=== PATIENT | male | born 1960 | race American Indian/Alaskan Native ===

== ENCOUNTER → 2018-02-02 | Outpatient (CLI) | payer OTHER ==
[~2018-02-02] MED LIST: ASPI81CH PO; GLIP10 PO; ZESTRIL40 MG PO
[2018-02-02 11:25] LABS: Hematocrit 34.9 % (37.0-53.0); Hemoglobin 11.8 g/dL (13.5-17.5)
[2018-02-02 11:53] LABS: Albumin, Blood 3.4 g/dL (3.4-5.0); Anion Gap 6 mmol/L (6-16); Blood Urea Nitrogen 42 mg/dL (8-24); Bun/Creatinine Ratio 11.6 (12.0-20.0); CO2, Blood 22 mmol/L (21-32); Calcium, Blood 8.7 mg/dL (8.5-10.1); Chloride, Blood 109 mmol/L (98-108); Creatinine, Blood 3.63 mg/dL (0.60-1.20); Glomerular Filtration Rate 18 (60-); Glucose, Blood 319 mg/dL (70-99); Magnesium, Blood 2.3 mg/dL (1.6-2.4); Phosphorus, Blood 3.7 mg/dL (2.5-4.9); Potassium, Blood 5.2 mmol/L (3.5-5.5); Sodium, Blood 137 mmol/L (136-145)
== END ==
LOC: LAB SHORT 10:34 → OLS 10:34
PROVIDERS: Internal Medicine
DX: E61.2 Magnesium deficiency (principal); N18.4 Chronic kidney disease, stage 4 (severe); D63.1 Anemia in chronic kidney disease
CPT/HCPCS: 36415; 80069; 83735; 83970; 85014; 85018

== ENCOUNTER 2018-06-17 10:02 | Day surgery (SDC) | payer OTHER ==
[~2018-06-17] VITALS: Ht 177.8 cm; Wt 104.5 kg
[~2018-06-17 10:02] MED LIST changes: +CLON.1 PO; +FURO40 PO; +LABE100 PO; +LIRA0.6P; +LISI20 PO; +NIFE60ER PO; +VELTASSA8.4 GM PO
== END 2018-06-17 11:52 | disposition home or self-care (01) ==
LOC: ORSCSDS 10:02
PROVIDERS: Internal Medicine Gastroenterology
PROC: 0DB58ZX Excision of Esophagus, Via Natural or Artificial Opening Endoscopic, Diagnostic (ICD-10-PCS; principal; 2018-06-17 11:15)
PROC: 0D758ZZ Dilation of Esophagus, Via Natural or Artificial Opening Endoscopic (ICD-10-PCS; principal; 2018-06-17 11:15)
PROC: 0DB68ZX Excision of Stomach, Via Natural or Artificial Opening Endoscopic, Diagnostic (ICD-10-PCS; principal; 2018-06-17 11:15)
DX: R13.10 Dysphagia, unspecified (principal); K22.10 Ulcer of esophagus without bleeding; K22.2 Esophageal obstruction; K44.9 Diaphragmatic hernia without obstruction or gangrene; K21.9 Gastro-esophageal reflux disease without esophagitis; R93.3 Abnormal findings on diagnostic imaging of other parts of digestive tract; E11.22 Type 2 diabetes mellitus with diabetic chronic kidney disease; I12.9 Hypertensive chronic kidney disease with stage 1 through stage 4 chronic kidney disease, or unspecified chronic kidney disease; N18.4 Chronic kidney disease, stage 4 (severe); N25.81 Secondary hyperparathyroidism of renal origin; Z86.718 Personal history of other venous thrombosis and embolism; E66.9 Obesity, unspecified; Z68.36 Body mass index [BMI] 36.0-36.9, adult; Z79.82 Long term (current) use of aspirin; Z79.4 Long term (current) use of insulin; Z79.899 Other long term (current) drug therapy
CPT/HCPCS: 82947; J7030; J7040

== ENCOUNTER 2020-08-23 10:45 | Inpatient (IN) | payer OTHER ==
[~2020-08-23] VITALS: Ht 177.8 cm; Wt 106.9 kg
[~2020-08-23 10:45] MED LIST changes: +Aspirin EC81 MG PO
[2020-08-23] MEDS ORDERED: Vitamin D2000 UNIT PO (11:08)
[2020-08-23] MEDS ORDERED: CINA30 PO (11:08)
[2020-08-23] MEDS ORDERED: AMLO5 PO (11:08)
[2020-08-23] MEDS ORDERED: LOSA25 PO (11:09)
[2020-08-23] MEDS ORDERED: Calcium Acetat667 MG PO (11:10)
[2020-08-23] MEDS ORDERED: METO50 PO (11:10)
[2020-08-23] MEDS ORDERED: OMEP20ER PO (11:10)
[2020-08-23 11:54] LABS: BASOPHILS ABSOLUTE AUTO 0.03 K/mm3 (0.00-0.23); BASOPHILS PERCENT AUTO 0 % (0-2); EOSINOPHILS ABSOLUTE AUTO 0.03 K/mm3 (0.00-0.68); EOSINOPHILS PERCENT AUTO 0 % (0-6); Hematocrit 31.9 % (37.0-53.0); Hemoglobin 10.9 g/dL (13.5-17.5); IMMATURE GRAN ABSOLUTE AUTO 0.07 K/mm3 (0.00-0.10); IMMATURE GRAN PERCENT AUTO 1 % (0-1); LYMPHOCYTES ABSOLUTE AUTO 1.14 K/mm3 (0.84-5.20); LYMPHOCYTES PERCENT AUTO 12 % (21-46); MONOCYTES ABSOLUTE AUTO 0.94 K/mm3 (0.16-1.47); MONOCYTES PERCENT AUTO 10 % (4-13); Mean Corpuscular HGB 30.9 pg (26.0-34.0); Mean Corpuscular HGB Conc 34.2 g/dL (31.5-36.5); Mean Corpuscular Volume 90 fL (80-100); Mean Platelet Volume 9.8 fL (9.1-12.4); NEUTROPHILS ABSOLUTE AUTO 7.67 K/mm3 (1.96-9.15); NEUTROPHILS PERCENT AUTO 78 % (41-73); Platelet Count 306 K/mm3 (150-400); RDW Coefficient Variation 12.6 % (11.7-14.2); RDW Standard Deviation 41.4 fL (35.1-46.3); Red Blood Cell Count 3.53 M/mm3 (4.30-5.90); White Blood Cell Count 9.88 K/mm3 (4.00-11.30)
[2020-08-23 12:07] LABS: Troponin I 0.134 ng/mL (0.000-0.040)
[2020-08-23 12:11] LABS: Albumin, Blood 2.8 g/dL (3.4-5.0); Albumin/Globulin Ratio 0.5 (0.8-1.8); Bilirubin, Total 0.5 mg/dL (0.1-1.0); Bun/Creatinine Ratio 4.5 (12.0-20.0); Calcium, Blood 9.3 mg/dL (8.5-10.1); Creatinine, Blood 7.05 mg/dL (0.60-1.20); Globulin, Blood 5.1 g/dL (2.2-4.0); Potassium, Blood 3.6 mmol/L (3.5-5.5); Total Protein, Blood 7.9 g/dL (6.4-8.2)
[2020-08-23] MEDS ORDERED: TOPROL XL50 M1 PO (13:27)
[2020-08-23] MEDS ORDERED: CALCIUM ACETAT667 M2 PO (13:28)
--- NOTE | 2020-08-23 18:29 | NUR ---
ARRIVAL TO ICU 1645 - PT ARRIVED FROM ED TO ICU AT THIS TIME. HE HAS BEEN AWAKE, A/O X3, CALM AND COOPERATIVE SINCE ARRIVAL. DAUGHTER UPDATED AT BEDSIDE. PT ARRIVED WITH D10 INFUSING AT 75 ML/HR PER ORDER. SHORTLY AFTER ARRIVAL, PT WAS SITTING UPRIGHT IN BED EATING DINNER AND HAD SUDDEN ONSET OF VOMITING. ZOFRAN 4 MG IVP GIVEN AND VOMITING AND NAUSEA HAS SINCE RESOLVED. LUNG SOUNDS COARE IN UPPER LOBES AND DIMINISHED IN BASES. TOLERATING WEARING 3L NC. DIALYSIS FISTULA IN L ARM IS COVERED WITH OCCLUSIVE DRESSING. BP ELEVATED INITIALLY AT ARRIVAL, BUT IS NOW 150S SYSTOLIC. PT ABLE TO TAKE PO LASIX AND PO HYDRALAZINE. SEE BLOOD SUGAR TRENDS. WILL GIVE BEDSIDE, HANDOFF REPORT TO SHASTA HARDEN.
--- NOTE | 2020-08-23 23:30 | NUR ---
CARE ASSUMPTION ASSUMED CARE OF PT @ APPROX 2300 THIS SHIFT. PT A&O X4. VSS. MONITOR SHOWS NSR, HR 70's. SPO2 > 92% ON 4L NC. D10 GTT INFUSING PER ORDERS. Q1H CBG MONITORING SHOWING 90's-110. WILL CONTINUE TO MONITOR & PROVIDE CARE.
[2020-08-24 04:52] LABS: Bun/Creatinine Ratio 4.3 (12.0-20.0); Calcium, Blood 8.3 mg/dL (8.5-10.1); Creatinine, Blood 9.25 mg/dL (0.60-1.20); Potassium, Blood 4.6 mmol/L (3.5-5.5)
--- NOTE | 2020-08-24 06:26 | NUR ---
SHIFT SUMMARY PT A&O X4. BP ELEVATED, OTHERWISE VSS. PO HYDRALAZINE GIVEN PER EMAR. MONITOR SHOWS NSR, HR 70's-80's. SPO2 > 92% ON 4L NC. CBG VALUES CONSISTENTLY > 100. MD GALEANA NOTIFIED W/ NEW ORDERS TO DC D10 GTT AND CHANGE Q1H CBG MONITORING TO Q3H X2, THEN CHANGE TO AC & HS IF > 100. WILL CONTINUE TO MONITOR UNTIL REPORT OFF TO DAY SHIFT RN.
--- NOTE | 2020-08-24 13:13 | NUR ---
PT HAS JUST FINISHED WITH DIALYSIS AND IS RETURNING TO ROOM
--- NOTE | 2020-08-24 14:15 | NUR ---
PT A/O X3, ANSWERING QUESTIONS APPROPRIATELY. GLUCOSE HAS REMAINED IN THE 100s T/O THIS SHIFT. VSS. PT HAS BEEN TO DIALYSIS THIS AM WHICH HE TOLERATED WELL. PT IS RESTING PAIN FREE IN BEDSIDE CHAIR WATCHING TV. ATE 100% OF HIS LUNCH TRAY UPON RETURNING FROM DIALYSIS. PT IS UPDATED ABOUT MEDICAL STATUS AND IS AWAITING A NEW ROOM ASSIGNMENT
--- NOTE | 2020-08-24 17:46 | NUR ---
RECEIVED PT TO RM 338 VIA W/C FROM PCU 13. PT IS A&O, INDEPENDENT IN AND TO [facility]. ADMITTED FOR AMS R/T CBG OF 20 WHILE AT [facility] YESTERDAY. PT PLACED ON D10 DRIP UNTIL IMPROVED. PT NOW BACK AT BASELINE. WENT TO DIALYSIS TODAY WHILE IN PCU. ON 2L NC AT BASELINE HOME O2. PT REQUESTED RECLINER TO SIT IN AT BS WHEN COMING TO . PT NOW WATCHING TV. NO C/O. CALL LT IN REACH.
--- NOTE | 2020-08-24 21:00 | NUR ---
PT. WITH BS OF 436. NOTIFIED ALEXIA KAPLAN DATA COMMUNICATIONS ANALYST. INSTRUCTED THIS NURSE TO WAIT UNTIL AM FOR LABS AND RECHECK OF BS AT THAT TIME DUE TO PT'S SEVERE HYPOGLYCEMIA DURING ADMISSION AND RECENTLY RECEIVING DEXTROSE. PT. ALERT, AWAKE, SITTING UP IN RECLINER CHAIR WATCHING TV. NO APPARENT DISTRESS NOTED. NO COMPLAINTS. DENIES NEEDS AT THIS TIME. CALL LIGHT WITHIN REACH. WILL CONT TO MONITOR.
--- NOTE | 2020-08-25 04:47 | NUR ---
SHIFT SUMMARY- PT. A&O, PLEASANT, AND COOPERATIVE WITH CARE. INDEP IN ROOM AND ABLE TO MAKE NEEDS KNOWN. NO COMPLAINTS OF PAIN OR DISCOMFORT T/O THE NIGHT. CBG LAST NIGHT AT 436, HOSPITALIST MADE AWARE(SEE NURSE NOTE). INSTRUCTED TO CONT TO MONITOR PT. AND RECHECK BS WITH AM LABS/AC. PT. ASLEEP THE REST OF THE SHIFT, NO APPARENT DISTRESS NOTED. CALL LIGHT WITHIN REACH AND SIDE RAILS UPX2. WILL CONT TO MONITOR.
[2020-08-25 06:11] LABS: BASOPHILS ABSOLUTE AUTO 0.07 K/mm3 (0.00-0.23); BASOPHILS PERCENT AUTO 1 % (0-2); EOSINOPHILS ABSOLUTE AUTO 0.47 K/mm3 (0.00-0.68); EOSINOPHILS PERCENT AUTO 7 % (0-6); Hematocrit 27.2 % (37.0-53.0); Hemoglobin 9.1 g/dL (13.5-17.5); IMMATURE GRAN ABSOLUTE AUTO 0.04 K/mm3 (0.00-0.10); IMMATURE GRAN PERCENT AUTO 1 % (0-1); LYMPHOCYTES ABSOLUTE AUTO 1.71 K/mm3 (0.84-5.20); LYMPHOCYTES PERCENT AUTO 24 % (21-46); MONOCYTES ABSOLUTE AUTO 0.99 K/mm3 (0.16-1.47); MONOCYTES PERCENT AUTO 14 % (4-13); Mean Corpuscular HGB 30.5 pg (26.0-34.0); Mean Corpuscular HGB Conc 33.5 g/dL (31.5-36.5); Mean Corpuscular Volume 91 fL (80-100); Mean Platelet Volume 9.8 fL (9.1-12.4); NEUTROPHILS ABSOLUTE AUTO 3.79 K/mm3 (1.96-9.15); NEUTROPHILS PERCENT AUTO 54 % (41-73); Platelet Count 295 K/mm3 (150-400); RDW Coefficient Variation 12.1 % (11.7-14.2); RDW Standard Deviation 40.7 fL (35.1-46.3); Red Blood Cell Count 2.98 M/mm3 (4.30-5.90); White Blood Cell Count 7.07 K/mm3 (4.00-11.30)
[2020-08-25 06:22] LABS: Albumin, Blood 2.4 g/dL (3.4-5.0); Anion Gap 8 mmol/L (6-16); Blood Urea Nitrogen 42 mg/dL (8-24); Bun/Creatinine Ratio 5.7 (12.0-20.0); CO2, Blood 32 mmol/L (21-32); Calcium, Blood 8.9 mg/dL (8.5-10.1); Chloride, Blood 92 mmol/L (98-108); Glomerular Filtration Rate 8 (60-); Glucose, Blood 193 mg/dL (70-99); Phosphorus, Blood 7.2 mg/dL (2.5-4.9); Potassium, Blood 4.6 mmol/L (3.5-5.5); Sodium, Blood 132 mmol/L (136-145)
[2020-08-25] MEDS ORDERED: HYDR10 PO (16:19)
== END 2020-08-25 16:56 | disposition home or self-care (01) | DRG 871 ==
LOC: ER 10:45 → ERHOLD 13:36 → PCU 13:36 → MEDS 08-24 17:33
PROVIDERS: Emergency Medicine; ADMIT Family Medicine
PROC: 5A1D70Z Performance of Urinary Filtration, Intermittent, Less than 6 Hours Per Day (ICD-10-PCS; principal; 2020-08-25)
DX: A41.9 Sepsis, unspecified organism (principal); N18.6 End stage renal disease; J18.9 Pneumonia, unspecified organism; G92 Toxic encephalopathy; J96.01 Acute respiratory failure with hypoxia; I12.0 Hypertensive chronic kidney disease with stage 5 chronic kidney disease or end stage renal disease; N17.9 Acute kidney failure, unspecified; Z20.828 Contact with and (suspected) exposure to other viral communicable diseases; Z99.2 Dependence on renal dialysis; R65.20 Severe sepsis without septic shock; E11.22 Type 2 diabetes mellitus with diabetic chronic kidney disease; Z79.82 Long term (current) use of aspirin; Z79.84 Long term (current) use of oral hypoglycemic drugs; E11.649 Type 2 diabetes mellitus with hypoglycemia without coma
CPT/HCPCS: 36415; 71045; 71046; 80048; 80053; 80069; 82947; 83036; 83605; 84145; 84484; 85025; 87040; 93005; 93010; 96365; 96367; 96372-59; 96375; 99291-25; A9270; J0456; J0696; J1644; J1940; J2354; J2405; J7050; U0004

== ENCOUNTER 2020-10-01 20:53 | Observation (INO) | payer OTHER ==
[~2020-10-01] VITALS: Ht 177.8 cm; Wt 108.7 kg
[~2020-10-01 20:53] MED LIST changes: +AMLO5 PO; +CALCIUM ACETAT667 M2 PO; +CINA30 PO; +Calcium Acetat667 MG PO; +HYDR10 PO; +LOSA25 PO; +METO50 PO; +OMEP20ER PO; +TOPROL XL50 M1 PO; +Vitamin D2000 UNIT PO
[2020-10-01 22:09] LABS: Influenza A, PCR Negative (NEGATIVE); Influenza B, PCR Negative (NEGATIVE); Resp Syncytial Virus, PCR Negative (NEGATIVE); SARS-Cov-2 (COVID-19) PCR, MMC Negative (NEGATIVE)
[2020-10-01 22:15] LABS: Albumin, Blood 3.5 g/dL (3.4-5.0); Albumin/Globulin Ratio 0.8 (0.8-1.8); Bilirubin, Total 0.8 mg/dL (0.1-1.0); Bun/Creatinine Ratio 4.6 (12.0-20.0); Calcium, Blood 10.1 mg/dL (8.5-10.1); Creatinine, Blood 7.98 mg/dL (0.60-1.20); Globulin, Blood 4.2 g/dL (2.2-4.0); Potassium, Blood 6.5 mmol/L (3.5-5.5); Total Protein, Blood 7.7 g/dL (6.4-8.2)
[2020-10-01 22:41] LABS: International Normalized Ratio 1.05; Prothrombin Time Results 11.2 Sec (9.7-11.5)
[2020-10-01 22:46] LABS: BASOPHILS ABSOLUTE AUTO 0.04 K/mm3 (0.00-0.23); BASOPHILS PERCENT AUTO 0 % (0-2); EOSINOPHILS ABSOLUTE AUTO 0.11 K/mm3 (0.00-0.68); EOSINOPHILS PERCENT AUTO 1 % (0-6); Hematocrit 28.1 % (37.0-53.0); Hemoglobin 9.2 g/dL (13.5-17.5); IMMATURE GRAN ABSOLUTE AUTO 0.04 K/mm3 (0.00-0.10); IMMATURE GRAN PERCENT AUTO 0 % (0-1); LYMPHOCYTES ABSOLUTE AUTO 2.18 K/mm3 (0.84-5.20); LYMPHOCYTES PERCENT AUTO 21 % (21-46); MONOCYTES ABSOLUTE AUTO 1.02 K/mm3 (0.16-1.47); MONOCYTES PERCENT AUTO 10 % (4-13); Mean Corpuscular HGB Conc 32.7 g/dL (31.5-36.5); Mean Corpuscular Volume 95 fL (80-100); Mean Platelet Volume 9.2 fL (9.1-12.4); NEUTROPHILS ABSOLUTE AUTO 7.14 K/mm3 (1.96-9.15); NEUTROPHILS PERCENT AUTO 68 % (41-73); Platelet Count 276 K/mm3 (150-400); RDW Coefficient Variation 14.2 % (11.7-14.2); RDW Standard Deviation 48.4 fL (35.1-46.3); Red Blood Cell Count 2.97 M/mm3 (4.30-5.90); White Blood Cell Count 10.53 K/mm3 (4.00-11.30)
--- NOTE | 2020-10-02 02:52 | NUR ---
HON-ROUTINE HOURS HEMODIALYSIS ORDERED BY DR SCALES FOR PATENT ADMITTED TO PCU VIA ER WITH C/O K+ 6.5, SOB AND FLUID OVERLOAD. BILAT LOWER LEGS WITH 2+ EDEMA.
[2020-10-02 03:47] LABS: BASOPHILS ABSOLUTE AUTO 0.03 K/mm3 (0.00-0.23); BASOPHILS PERCENT AUTO 0 % (0-2); EOSINOPHILS ABSOLUTE AUTO 0.09 K/mm3 (0.00-0.68); EOSINOPHILS PERCENT AUTO 1 % (0-6); Hematocrit 25.3 % (37.0-53.0); Hemoglobin 8.2 g/dL (13.5-17.5); IMMATURE GRAN ABSOLUTE AUTO 0.02 K/mm3 (0.00-0.10); IMMATURE GRAN PERCENT AUTO 0 % (0-1); LYMPHOCYTES ABSOLUTE AUTO 1.72 K/mm3 (0.84-5.20); LYMPHOCYTES PERCENT AUTO 22 % (21-46); MONOCYTES ABSOLUTE AUTO 0.85 K/mm3 (0.16-1.47); MONOCYTES PERCENT AUTO 11 % (4-13); Mean Corpuscular HGB 30.3 pg (26.0-34.0); Mean Corpuscular HGB Conc 32.4 g/dL (31.5-36.5); Mean Corpuscular Volume 93 fL (80-100); Mean Platelet Volume 8.9 fL (9.1-12.4); NEUTROPHILS ABSOLUTE AUTO 5.22 K/mm3 (1.96-9.15); NEUTROPHILS PERCENT AUTO 66 % (41-73); Platelet Count 259 K/mm3 (150-400); RDW Coefficient Variation 14.2 % (11.7-14.2); RDW Standard Deviation 47.6 fL (35.1-46.3); Red Blood Cell Count 2.71 M/mm3 (4.30-5.90); White Blood Cell Count 7.93 K/mm3 (4.00-11.30)
[2020-10-02 04:05] LABS: Albumin/Globulin Ratio 0.8 (0.8-1.8); Bilirubin, Total 0.6 mg/dL (0.1-1.0); Bun/Creatinine Ratio 4.8 (12.0-20.0); Calcium, Blood 9.2 mg/dL (8.5-10.1); Creatinine, Blood 5.8 mg/dL (0.60-1.20); Globulin, Blood 3.7 g/dL (2.2-4.0); Total Protein, Blood 6.7 g/dL (6.4-8.2)
[2020-10-02 04:06] LABS: Potassium, Blood 4.3 mmol/L (3.5-5.5)
--- NOTE | 2020-10-02 05:18 | NUR ---
SHIFT SUMMARY PT ARRIVED TO THE UNIT AROUND 0120 IN STABLE CONDTION WITH NO COMPLAINTS OF PAIN, SOB, OR CP. T/O SHIFT VITALS HAVE BEEN STABLE, BP HYPERTENSIVE 150-160 SYSTOLIC. HR 80-90'S WITH SINUS RHYTHM. ON 2LPM VIA NC WITH O2 SATS IN THE 90'S, ROOM AIR AT BASELINE. PT ALERT AND ORIENTED, PLEASENT AND COOPERATIVE WITH CARE. RECEIVED DIALYSIS T/O MOST OF THE MORNING. BG STABLE, NOW TRENDING IN THE 70'S. PT HAS BEEN NPO T/O SHIFT AND STILL RECEIVING DIALYSIS. WILL CONTINUE TO MONITOR UNTIL SHIFT CHNAGE.
--- NOTE | 2020-10-02 10:55 | NUR ---
DISCHARGE SUMMARY PT A&Ox3; CALM AND COOPERATIVE WITH CARE. PT RESTING IN BED DUIRNG SHIFT. PT SBA TO WHEELCHAIR. PT DENIES PAIN, SOB, NAUSEA, AND DIZZINESS. VSS. PT ON 2L 02 VIA NC, TITRATED TO RA SPO2 92-94% ON RA. NO OTHER ACUTE CHANGES NOTED DURING SHIFT. EDUCATED PT ON DISCHARGE INSTRUCTIONS, FOLLOW UP APPOINTMENTS AND CONTINUE CURRENT MEDICATIONS. PT LEFT ROOM VIA WHEELCHAIR AT 1052.
== END 2020-10-02 10:52 | disposition home or self-care (01) ==
LOC: ER 20:53 → PCU 20:55 → ER 10-02 00:03 → PCU 10-02 01:10
PROVIDERS: Physician Assistant; ADMIT Internal Medicine
DX: J81.1 Chronic pulmonary edema (principal); E87.5 Hyperkalemia; E11.22 Type 2 diabetes mellitus with diabetic chronic kidney disease; I12.0 Hypertensive chronic kidney disease with stage 5 chronic kidney disease or end stage renal disease; N18.6 End stage renal disease; Z99.2 Dependence on renal dialysis; Z20.828 Contact with and (suspected) exposure to other viral communicable diseases; Z88.8 Allergy status to other drugs, medicaments and biological substances; Z79.82 Long term (current) use of aspirin; Z79.899 Other long term (current) drug therapy
CPT/HCPCS: 0241U; 36415; 71046; 80053; 82947; 83605; 83880; 85025; 85610; 85730; 93005; 93010; 96374; 96375; 96376; 99285-25; A9270; G0257; G0378; J0610; J1815; J2405

== ENCOUNTER 2020-12-01 16:56 | Observation (INO) | payer OTHER ==
[~2020-12-01] VITALS: Ht 177.8 cm; Wt 112.5 kg
[2020-12-01 17:39] LABS: BASOPHILS ABSOLUTE AUTO 0.04 K/mm3 (0.00-0.23); BASOPHILS PERCENT AUTO 1 % (0-2); EOSINOPHILS ABSOLUTE AUTO 0.25 K/mm3 (0.00-0.68); EOSINOPHILS PERCENT AUTO 4 % (0-6); Hematocrit 27.4 % (37.0-53.0); Hemoglobin 9.1 g/dL (13.5-17.5); IMMATURE GRAN ABSOLUTE AUTO 0.02 K/mm3 (0.00-0.10); IMMATURE GRAN PERCENT AUTO 0 % (0-1); LYMPHOCYTES ABSOLUTE AUTO 0.91 K/mm3 (0.84-5.20); LYMPHOCYTES PERCENT AUTO 13 % (21-46); MONOCYTES PERCENT AUTO 13 % (4-13); Mean Corpuscular HGB 31.3 pg (26.0-34.0); Mean Corpuscular HGB Conc 33.2 g/dL (31.5-36.5); Mean Corpuscular Volume 94 fL (80-100); Mean Platelet Volume 9.2 fL (9.1-12.4); NEUTROPHILS ABSOLUTE AUTO 4.84 K/mm3 (1.96-9.15); NEUTROPHILS PERCENT AUTO 70 % (41-73); Platelet Count 259 K/mm3 (150-400); RDW Coefficient Variation 14.5 % (11.7-14.2); RDW Standard Deviation 49.9 fL (35.1-46.3); Red Blood Cell Count 2.91 M/mm3 (4.30-5.90); White Blood Cell Count 6.96 K/mm3 (4.00-11.30)
[2020-12-01 18:00] LABS: Alanine Aminotransfer (ALT/SGP 19 U/L (12-78); Albumin, Blood 3.2 g/dL (3.4-5.0); Albumin/Globulin Ratio 0.7 (0.8-1.8); Alk Phos 169 U/L (50-136); Anion Gap 7 mmol/L (6-16); Aspartate Aminotrans (AST/SGOT 16 U/L (12-37); Bilirubin, Total 0.7 mg/dL (0.1-1.0); Blood Urea Nitrogen 28 mg/dL (8-24); Bun/Creatinine Ratio 4.4 (12.0-20.0); CO2, Blood 31 mmol/L (21-32); Calcium, Blood 9.2 mg/dL (8.5-10.1); Chloride, Blood 91 mmol/L (98-108); Globulin, Blood 4.3 g/dL (2.2-4.0); Glomerular Filtration Rate 10 (60-); Glucose, Blood 134 mg/dL (70-99); Potassium, Blood 5.2 mmol/L (3.5-5.5); Sodium, Blood 129 mmol/L (136-145); Total Protein, Blood 7.5 g/dL (6.4-8.2); Troponin I <0.015 ng/mL (0.000-0.040)
--- NOTE | 2020-12-01 20:39 | NUR ---
HD 1:1 NON-ROUTINE HOURS ORDERED BY DR SCALES. TX SCHEDULED FOR 0 WAIT TIME COMMENCES AT 2200
--- NOTE | 2020-12-01 22:11 | NUR ---
HD 1:1 NON-ROUTINE TREATMENT ORDERED BY DR SCALES FOR PATIENT ADMITTED TO PCU AFTER MISSING ROUTINE OUTPATIENT DIALYSIS THIS MORNING DUE TO NAUSEA AND COUGH. PATIENT WITH FLUID EXCESS AND NEED FOR URGENT UF OF 2 - 2.5 L
[2020-12-02 04:09] LABS: BASOPHILS ABSOLUTE AUTO 0.05 K/mm3 (0.00-0.23); BASOPHILS PERCENT AUTO 1 % (0-2); EOSINOPHILS ABSOLUTE AUTO 0.23 K/mm3 (0.00-0.68); EOSINOPHILS PERCENT AUTO 3 % (0-6); Hematocrit 28.5 % (37.0-53.0); Hemoglobin 9.1 g/dL (13.5-17.5); IMMATURE GRAN ABSOLUTE AUTO 0.03 K/mm3 (0.00-0.10); IMMATURE GRAN PERCENT AUTO 0 % (0-1); LYMPHOCYTES ABSOLUTE AUTO 1.01 K/mm3 (0.84-5.20); LYMPHOCYTES PERCENT AUTO 15 % (21-46); MONOCYTES ABSOLUTE AUTO 0.92 K/mm3 (0.16-1.47); MONOCYTES PERCENT AUTO 14 % (4-13); Mean Corpuscular HGB 30.5 pg (26.0-34.0); Mean Corpuscular HGB Conc 31.9 g/dL (31.5-36.5); Mean Corpuscular Volume 96 fL (80-100); Mean Platelet Volume 9.2 fL (9.1-12.4); NEUTROPHILS ABSOLUTE AUTO 4.54 K/mm3 (1.96-9.15); NEUTROPHILS PERCENT AUTO 67 % (41-73); Platelet Count 258 K/mm3 (150-400); RDW Coefficient Variation 14.3 % (11.7-14.2); Red Blood Cell Count 2.98 M/mm3 (4.30-5.90); White Blood Cell Count 6.78 K/mm3 (4.00-11.30)
[2020-12-02 04:32] LABS: Albumin, Blood 3.2 g/dL (3.4-5.0); Albumin/Globulin Ratio 0.7 (0.8-1.8); Bilirubin, Total 0.8 mg/dL (0.1-1.0); Bun/Creatinine Ratio 4.3 (12.0-20.0); Calcium, Blood 9.3 mg/dL (8.5-10.1); Creatinine, Blood 5.31 mg/dL (0.60-1.20); Globulin, Blood 4.4 g/dL (2.2-4.0); Total Protein, Blood 7.6 g/dL (6.4-8.2)
--- NOTE | 2020-12-02 05:40 | NUR ---
SHIFT SUMMARY PT TO UNIT FROM ED. DIALYSIS STARTED UPON ADMISSION. PT AXO. IN SR. ON BASELINE 3LNC. VSS WITH MODERATE HTN. FISTULA TO L ARM, DRESSED BY TECH POST DIALYSIS. PT HAS BEEN WATCHING TV / SLEEPING POST ADMIT AND DIALYSIS. ADMISSION PACKET COMPLETED. WILL CONTINUE TO MONITOR UNTIL SHIFT CHANGE.
--- NOTE | 2020-12-02 07:30 | NUR ---
ASSUMED CARE: PT RESTING QUIETLY AT THIS TIME. NSR ON TELE. NO ACUTE NEEDS OR CONCERNS AT THIS TIME.
--- NOTE | 2020-12-02 12:01 | NUR ---
DR PARIS REQUESTED INPUT FROM DR SCALES REGARDING DC. SHEEP AND WHEAT FARMER CONTACTED DR SCALES WHO STATED SHE WOULD REACH OUT TO DR PARIS. DR PARIS MADE AWARE OF THIS
--- NOTE | 2020-12-02 15:00 | NUR ---
PT GIVEN DC INSTRUCTIONS REGARDING FOLLOW UP APPOINTMENTS, NO NEW MEDICATIONS. INSTRUCTED TO CALL OFFICE TOMORROW TO SET UP FOLLOW UPS. IVS DC'D WNL. DENIED FURTHER QUESTIONS OR CONCERNS. ESCORTED OUT VIA WHEEL CHAIR BY HOSPITAL STAFF
== END 2020-12-02 14:59 | disposition home or self-care (01) ==
LOC: ER 16:56 → PCU 21:32
PROVIDERS: Physician Assistant; ADMIT Internal Medicine
DX: I13.11 Hypertensive heart and chronic kidney disease without heart failure, with stage 5 chronic kidney disease, or end stage renal disease (principal); N18.6 End stage renal disease; J96.11 Chronic respiratory failure with hypoxia; K22.70 Barrett's esophagus without dysplasia; D63.1 Anemia in chronic kidney disease; E87.1 Hypo-osmolality and hyponatremia; E66.01 Morbid (severe) obesity due to excess calories; Z68.35 Body mass index [BMI] 35.0-35.9, adult; Z99.81 Dependence on supplemental oxygen; Z99.2 Dependence on renal dialysis; Z91.15 Patient's noncompliance with renal dialysis
CPT/HCPCS: 36415; 71046; 80053; 83690; 84484; 85025; 93005; 93010; 96374; 96376; 99285-25; A9270; G0257; G0378; J2405

== ENCOUNTER 2021-04-05 15:55 | Inpatient (IN) | payer OTHER ==
[~2021-04-05] VITALS: Ht 177.8 cm; Wt 109.9 kg
[2021-04-05] MEDS ORDERED: GLIP10 PO (16:03)
[2021-04-05] MEDS ORDERED: GABA100 PO (16:03)
[2021-04-05] MEDS ORDERED: TORSE20 PO (16:03)
[2021-04-05] MEDS ORDERED: TOPROL XL50 M1 PO (16:04)
[2021-04-05] MEDS ORDERED: RENVELA800 MG PO (16:04)
[2021-04-05 16:22] LABS: BASOPHILS ABSOLUTE AUTO 0.05 K/mm3 (0.00-0.23); BASOPHILS PERCENT AUTO 1 % (0-2); EOSINOPHILS PERCENT AUTO 1 % (0-6); Hematocrit 38.6 % (37.0-53.0); IMMATURE GRAN ABSOLUTE AUTO 0.04 K/mm3 (0.00-0.10); IMMATURE GRAN PERCENT AUTO 1 % (0-1); LYMPHOCYTES ABSOLUTE AUTO 0.51 K/mm3 (0.84-5.20); LYMPHOCYTES PERCENT AUTO 7 % (21-46); MONOCYTES ABSOLUTE AUTO 0.74 K/mm3 (0.16-1.47); MONOCYTES PERCENT AUTO 11 % (4-13); Mean Corpuscular HGB 29.6 pg (26.0-34.0); Mean Corpuscular HGB Conc 31.1 g/dL (31.5-36.5); Mean Corpuscular Volume 95 fL (80-100); NEUTROPHILS ABSOLUTE AUTO 5.58 K/mm3 (1.96-9.15); NEUTROPHILS PERCENT AUTO 80 % (41-73); Platelet Count 257 K/mm3 (150-400); RDW Coefficient Variation 17.2 % (11.7-14.2); RDW Standard Deviation 59.7 fL (35.1-46.3); Red Blood Cell Count 4.06 M/mm3 (4.30-5.90); White Blood Cell Count 7.02 K/mm3 (4.00-11.30)
[2021-04-05 16:50] LABS: Albumin/Globulin Ratio 0.6 (0.8-1.8); Bilirubin, Total 1.1 mg/dL (0.1-1.0); Calcium, Blood 8.9 mg/dL (8.5-10.1); Creatinine, Blood 3.97 mg/dL (0.60-1.20); Globulin, Blood 4.8 g/dL (2.2-4.0); Total Protein, Blood 7.8 g/dL (6.4-8.2); Troponin I 0.348 ng/mL (0.000-0.040)
[2021-04-05 20:38] LABS: International Normalized Ratio 1.1; Prothrombin Time Results 11.8 Sec (9.7-11.5)
[2021-04-06 04:26] LABS: BASOPHILS ABSOLUTE AUTO 0.07 K/mm3 (0.00-0.23); BASOPHILS PERCENT AUTO 1 % (0-2); EOSINOPHILS ABSOLUTE AUTO 0.82 K/mm3 (0.00-0.68); EOSINOPHILS PERCENT AUTO 9 % (0-6); Hematocrit 33.9 % (37.0-53.0); Hemoglobin 10.8 g/dL (13.5-17.5); IMMATURE GRAN ABSOLUTE AUTO 0.03 K/mm3 (0.00-0.10); IMMATURE GRAN PERCENT AUTO 0 % (0-1); LYMPHOCYTES ABSOLUTE AUTO 0.76 K/mm3 (0.84-5.20); LYMPHOCYTES PERCENT AUTO 8 % (21-46); MONOCYTES ABSOLUTE AUTO 1.02 K/mm3 (0.16-1.47); MONOCYTES PERCENT AUTO 11 % (4-13); Mean Corpuscular HGB 29.7 pg (26.0-34.0); Mean Corpuscular HGB Conc 31.9 g/dL (31.5-36.5); Mean Corpuscular Volume 93 fL (80-100); Mean Platelet Volume 9.2 fL (9.1-12.4); NEUTROPHILS ABSOLUTE AUTO 6.78 K/mm3 (1.96-9.15); NEUTROPHILS PERCENT AUTO 72 % (41-73); Platelet Count 291 K/mm3 (150-400); RDW Coefficient Variation 17.5 % (11.7-14.2); RDW Standard Deviation 59.8 fL (35.1-46.3); Red Blood Cell Count 3.64 M/mm3 (4.30-5.90); White Blood Cell Count 9.48 K/mm3 (4.00-11.30)
[2021-04-06 04:48] LABS: Albumin, Blood 2.9 g/dL (3.4-5.0); Anion Gap 6 mmol/L (6-16); Blood Urea Nitrogen 32 mg/dL (8-24); Bun/Creatinine Ratio 6.4 (12.0-20.0); CHOL/HDL RATIO 2.3; CO2, Blood 32 mmol/L (21-32); Calcium, Blood 9.5 mg/dL (8.5-10.1); Chloride, Blood 93 mmol/L (98-108); Cholesterol 137 mg/dL (50-200); Creatinine, Blood 5.01 mg/dL (0.60-1.20); Glomerular Filtration Rate 13 (60-); Glucose, Blood 118 mg/dL (70-99); HDL Cholesterol 60 mg/dL (>39); LDL/HDL RATIO 1.1; Low Density Lipoprotein Chol 66 mg/dL (0-110); Phosphorus, Blood 5.4 mg/dL (2.5-4.9); Potassium, Blood 5.1 mmol/L (3.5-5.5); Sodium, Blood 131 mmol/L (136-145); Triglycerides 56 mg/dL (30-160); Very Low Density Lipoprot Chol 11 mg/dL (6-32)
--- NOTE | 2021-04-06 05:47 | NUR ---
SHIFT SUMMARY PT FROM ER AT BEGINNING OF SHIFT. VSS. AXO. TRANSFERRED TO BED. IN SR. ON BASELINE 3LNC. DENYING CP AND NHAS CONTINUED T/O SHIFT., PT PLACED ON HEPARIN GTT UPON ADMISSION DUE TO ELEVATED TROPONINS. PT HS HAD Q1 CBG'S ORDERED SINCE ADMISISON. BLEED SUGARS STABLE >100 CURRENTLY. PT HAS DRANK >500 MLS OF ORANGE JUICE AND ATE TURKEY SANDWHICH UPON ADMISSION. FISTULA TO L ARM NOTED, STRONG BRUIT. PT HYPERTENSIVE ON ADMISSIION, BP HAS SLOWLY TRENDED DOWN W/ MEDS PER EMAR. PT HAS BEEN COOPERATIVE WITH CARE AND UNDERSTANDING OF Q1 HR ROUNDING.
--- NOTE | 2021-04-06 13:33 | NUR ---
echocardiogram complete
--- NOTE | 2021-04-06 18:47 | NUR ---
PT'S CBG MEASURED EVERY HOUR; RESULTS CONSISTENTLY LESS THAN 150; PT'S SISTER CALLED FOR UPDATES AT 1112 AND REPORTED NO FURTHER QUESTIONS AT THIS TIME; PT IN DIALYSIS FROM 0901 TO 1227; 3.2L REMOVED; HEPARIN TITRATED FROM 15 UNITS/KG/HR TO 17 UNITS/KG/HR PER MAR/PHARMACY; PT HAD CRITICAL HIGH TROPONIN AT 2.99 AT 1119 TRENDING DOWN FROM 3.2; PT REPORTED H/A 1X IN AM AND RECEIVED ACETAMINOPHEN 650MG PER MAR; PT CONSISTENTLY ON 3LNC; PT DENIES ADDITIONAL CONCERNS AT THIS TIME
[2021-04-07 02:24] LABS: Hematocrit 30.3 % (37.0-53.0); Hemoglobin 9.7 g/dL (13.5-17.5); Mean Corpuscular HGB 29.6 pg (26.0-34.0); Mean Corpuscular Volume 92 fL (80-100); Mean Platelet Volume 9.1 fL (9.1-12.4); Platelet Count 242 K/mm3 (150-400); RDW Coefficient Variation 17.2 % (11.7-14.2); Red Blood Cell Count 3.28 M/mm3 (4.30-5.90)
[2021-04-07 02:47] LABS: Albumin, Blood 2.8 g/dL (3.4-5.0); Anion Gap 4 mmol/L (6-16); Blood Urea Nitrogen 30 mg/dL (8-24); Bun/Creatinine Ratio 6.7 (12.0-20.0); CO2, Blood 33 mmol/L (21-32); Calcium, Blood 8.9 mg/dL (8.5-10.1); Chloride, Blood 93 mmol/L (98-108); Creatinine, Blood 4.46 mg/dL (0.60-1.20); Glomerular Filtration Rate 14 (60-); Glucose, Blood 183 mg/dL (70-99); Phosphorus, Blood 4.4 mg/dL (2.5-4.9); Potassium, Blood 4.9 mmol/L (3.5-5.5); Sodium, Blood 130 mmol/L (136-145)
--- NOTE | 2021-04-07 05:41 | NUR ---
SHIFT SUMMARY NO ACUTE CHANGES THIS SHIFT. VSS. PT AXO. 3LNC / BASELINE. PT Q1HR CBGS BUT THEN BECAME Q4HR CBGS PER ORDERS ONCE >150 X4. PT STARTED ON D51/2NS GTT @0000 ONCE NPO PER ORDERS, CBGS REMAIN >150. HEPARIN GTT CONTINUES, MANAGED BY PHARMACY. PT CONTINUES TO DENY CP. NO CHANGES NOTED TO TELEMETRY. PT HAS NOT BEEN ABLE TO REST MUCH THIS SHIFT BUT HAS FOUND SOME RELIEF ONCE IN RECLINER CHAIR. PT USING CALL LIGHT APPROPRIATELY.
--- NOTE | 2021-04-07 18:23 | NUR ---
PT'S CBG'S MEASURED Q4H PER ORDER; PT HAD HD FROM 1137 TO 1400; 3.8L REMOVED; PT CONSISTENTLY ON 3LNC; VSS; HEPARIN DRIP AT STABLE RATE PER PTT AND PHARMACY; D5W1/2NS STOPPED AT [address] SAINI; PT WILL BE NPO AT MIDNIGHT FOR ANGIO TOMORROW; CONSENT SIGNED BY PROVIDER AND PT AT BEDSIDE; PT DENIES ADDITIONAL CONCERNS AT THIS TIME
--- NOTE | 2021-04-07 20:20 | NUR ---
ASSUMED CARE PT ALERT AND ORIENTED. VITALS ARE STABLE. SATS ABOVE 92% ON ROOM AIR. DENIES CHEST PAIN OR SOB. PT TRANSFERED TO CHAIR AND TOLERATED WELL. CALL LIGHT IS WITHIN REACH. WILL CONTINUE TO MONITOR.
--- NOTE | 2021-04-08 00:07 | NUR ---
PT HAS BEEN EDUCATED ABOUT NPO ORDERS. PT ACKNOWLEDGED AND VERBILIZED UNDERSTANDING ORDERS. IS NOW NPO.
[2021-04-08 04:14] LABS: Hematocrit 31.7 % (37.0-53.0); Hemoglobin 10.2 g/dL (13.5-17.5)
[2021-04-08 04:33] LABS: Albumin, Blood 3.1 g/dL (3.4-5.0); Anion Gap 6 mmol/L (6-16); Blood Urea Nitrogen 37 mg/dL (8-24); Bun/Creatinine Ratio 6.7 (12.0-20.0); CO2, Blood 29 mmol/L (21-32); Calcium, Blood 9.7 mg/dL (8.5-10.1); Chloride, Blood 94 mmol/L (98-108); Creatinine, Blood 5.51 mg/dL (0.60-1.20); Glomerular Filtration Rate 11 (60-); Glucose, Blood 124 mg/dL (70-99); Magnesium, Blood 2.2 mg/dL (1.6-2.4); Phosphorus, Blood 4.6 mg/dL (2.5-4.9); Potassium, Blood 5.3 mmol/L (3.5-5.5); Sodium, Blood 129 mmol/L (136-145)
--- NOTE | 2021-04-08 05:55 | NUR ---
SHIFT SUMAMRY PT IS ALERT AND ORIENTED. BP HAS BEEN ELEVATED, SATS ARE ABOVE 92% ON ROOM AIR. PT HAS BEEN TO CHAIR AND BED T/0 NIGHT. HAS HAD VERY LITTLE SLEEP. HAS BEEN NPO SINCE MIDNIGHT FOR PROCEDURE AND HAS TOLERATED WELL. PT HAS BEEN SCRATCHING SOME SCABS THAT HAVE BEEN CAUSING HIM TO BLEED ON ARM. HEPARIN DRIP INFUSING. PT DENIES CHEST PAIN OR SOB. CALL LIGHT IS WITHIN REACH.
--- NOTE | 2021-04-08 10:25 | NUR ---
UPDATE PT TAKEN TO GUM MAKER. WILL AWAIT RETURN.
--- NOTE | 2021-04-08 12:14 | NUR ---
UPDATE PT RETURNED FROM [facility]. VS STABLE. O2 SATS REMAIN ABOVE 90% ON RA. PT ALERT AND AWAKE. RIGHT RADIAL SITE WNL, NO SIGNS OF BLEEDING, BRUISING, OR HEMATOMA NOTED. WILL CONTINUE TO MONITOR CLOSELY.
--- NOTE | 2021-04-08 17:24 | NUR ---
SHIFT SUMMARY PT ALERT AND ORIENTED. VS HAVE REMAINED STABLE. O2 SATS HAVE REMAINED ABOVE 90% ON RA. BP STABLE. HR NSR 90'S. RIGHT RADIAL SITE WITH TEGADERM DRESSING AND ARM BOARD IN PLACE WITH NO SIGNS OF BLEEDING, BRUISING, OR HEMATOMA NOTED. PT DENIES ANY PAIN. PT HAD DIALYSIS THIS EVENING FOLLOWING ANGIOGRAM. PLAN FOR PT TO BE [facility] TRANSFERRED TO [facility]. PT AWAITING BED ASSIGNMENT. HEP GTT TO BE RESTARTED AT 1900. WILL CONTINUE TO MONITOR AND REPORT TO ONCOMING RN. CALL LIGHT IN REACH.
--- NOTE | 2021-04-08 19:52 | NUR ---
ASSUMED CARE PT IS ALERT AND ORIENTED X4. PT IS PLEASANTLY CALM IN BED. DENIES CHEST PAIN OR SOB, DENIES ANY PAIN. INCISION SITE IS C/D WITH NO BLEEDING, TEGADERM AND SPLINT IN PLACE. VITALS ARE STABLE. PT ON ROOM AIR WITH SATS ABOVE 92%. CALL LIGHT IS WITHIN REACH. WILL CONTINUE TO MONITOR.
--- NOTE | 2021-04-08 21:56 | NUR ---
EMS ARRIVED AT APPROX 2150. PT LEFT UNIT WITH ALL BELONGINGS. HEPARIN DRIP INFUSING PER EMAR.
== END 2021-04-08 21:52 | disposition short-term general hospital (02) | DRG 280 ==
LOC: ER 15:55 → PCU 18:28
PROVIDERS: Emergency Medicine; Internal Medicine Nephrology; ADMIT Internal Medicine
PROC: 5A1D70Z Performance of Urinary Filtration, Intermittent, Less than 6 Hours Per Day (ICD-10-PCS; 2021-04-06)
PROC: 4A023N7 Measurement of Cardiac Sampling and Pressure, Left Heart, Percutaneous Approach (ICD-10-PCS; principal; 2021-04-08)
PROC: B2111ZZ Fluoroscopy of Multiple Coronary Arteries using Low Osmolar Contrast (ICD-10-PCS; 2021-04-08)
DX: I21.4 Non-ST elevation (NSTEMI) myocardial infarction (principal); I50.23 Acute on chronic systolic (congestive) heart failure; G92 Toxic encephalopathy; N18.6 End stage renal disease; I13.2 Hypertensive heart and chronic kidney disease with heart failure and with stage 5 chronic kidney disease, or end stage renal disease; J96.11 Chronic respiratory failure with hypoxia; E87.2 Acidosis; I42.9 Cardiomyopathy, unspecified; E11.649 Type 2 diabetes mellitus with hypoglycemia without coma; E11.22 Type 2 diabetes mellitus with diabetic chronic kidney disease; E11.42 Type 2 diabetes mellitus with diabetic polyneuropathy; I27.20 Pulmonary hypertension, unspecified; E66.01 Morbid (severe) obesity due to excess calories; I25.10 Atherosclerotic heart disease of native coronary artery without angina pectoris; E78.5 Hyperlipidemia, unspecified; E55.9 Vitamin D deficiency, unspecified; E86.9 Volume depletion, unspecified; D63.1 Anemia in chronic kidney disease; E87.5 Hyperkalemia; E83.39 Other disorders of phosphorus metabolism; K21.9 Gastro-esophageal reflux disease without esophagitis; Z99.81 Dependence on supplemental oxygen; Z99.2 Dependence on renal dialysis; Z88.8 Allergy status to other drugs, medicaments and biological substances; Z95.828 Presence of other vascular implants and grafts; Z79.82 Long term (current) use of aspirin; Z79.84 Long term (current) use of oral hypoglycemic drugs; Z79.899 Other long term (current) drug therapy; Z71.3 Dietary counseling and surveillance
CPT/HCPCS: 36415; 70450; 71045; 76937; 80053; 80061; 80069; 82947; 83036; 83735; 83880; 84484; 85014; 85018; 85025; 85027; 85347; 85610; 85730; 93005; 93010; 93306; 93458; 96374; 99152; 99153; 99285-25; A9270; C1769; C1887; C1894; J0360; J0881; J1644; J2250; J2405; J3010; J7030; J7042; J7050; Q9967

== ENCOUNTER 2021-12-15 12:01 | Observation (INO) | payer MEDICARE ==
[~2021-12-15] VITALS: Ht 177.8 cm; Wt 92.0 kg
[~2021-12-15 12:01] MED LIST changes: +Carvedilol12.5 MG PO; +EXCEDRIN MIGRAINE PO; +FEROSUL325 MG PO; +GABA100 PO; +Isosorbide Mono30 MG PO; +LIPITOR80 MG PO; +LOKELMA PO; +ONDA4 PO; +PLAVIX75 MG PO; +RENVELA800 MG PO; +THERA-D2000 UNIT PO; +TORSE20 PO; -Vitamin D2000 UNIT PO
[2021-12-15 12:48] LABS: BASOPHILS ABSOLUTE AUTO 0.04 K/mm3 (0.00-0.23); BASOPHILS PERCENT AUTO 1 % (0-2); EOSINOPHILS ABSOLUTE AUTO 0.03 K/mm3 (0.00-0.68); EOSINOPHILS PERCENT AUTO 1 % (0-6); Hematocrit 35.2 % (37.0-53.0); Hemoglobin 11.6 g/dL (13.5-17.5); IMMATURE GRAN ABSOLUTE AUTO 0.01 K/mm3 (0.00-0.10); IMMATURE GRAN PERCENT AUTO 0 % (0-1); LYMPHOCYTES ABSOLUTE AUTO 0.59 K/mm3 (0.84-5.20); LYMPHOCYTES PERCENT AUTO 12 % (21-46); MONOCYTES ABSOLUTE AUTO 0.48 K/mm3 (0.16-1.47); MONOCYTES PERCENT AUTO 10 % (4-13); Mean Corpuscular Volume 100 fL (80-100); Mean Platelet Volume 10.3 fL (9.1-12.4); NEUTROPHILS ABSOLUTE AUTO 3.66 K/mm3 (1.96-9.15); NEUTROPHILS PERCENT AUTO 76 % (41-73); Platelet Count 200 K/mm3 (150-400); RDW Standard Deviation 54.9 fL (35.1-46.3); Red Blood Cell Count 3.52 M/mm3 (4.30-5.90); White Blood Cell Count 4.81 K/mm3 (4.00-11.30)
[2021-12-15 13:23] LABS: Magnesium, Blood 1.9 mg/dL (1.6-2.4); Phosphorus, Blood 7.7 mg/dL (2.5-4.9)
[2021-12-15 13:24] LABS: Albumin, Blood 3.6 g/dL (3.4-5.0); Albumin/Globulin Ratio 0.9 (0.8-1.8); Bilirubin, Total 1.6 mg/dL (0.1-1.0); Bun/Creatinine Ratio 9.1 (12.0-20.0); Calcium, Blood 10.2 mg/dL (8.5-10.1); Creatinine, Blood 10.2 mg/dL (0.60-1.20); Globulin, Blood 4.2 g/dL (2.2-4.0); Potassium, Blood 7.2 mmol/L (3.5-5.5); Total Protein, Blood 7.8 g/dL (6.4-8.2)
[2021-12-15 17:10] LABS: Calcium, Ionized (POC) 1.08 mmol/L (1.10-1.46); Chloride (POC) 99 mmol/L (98-108); Creatinine (POC) 10.3 mg/dL (0.8-1.3); Glucose (ISTAT POC) 75 mg/dL (70-99); Hemoglobin (POC) 11.2 g/dL (13.5-17.5); Potassium (POC) 6.3 mmol/L (3.5-5.5); Sodium (POC) 135 mmol/L (135-148); Total CO2 (POC) 25 mmol/L (21-32)
--- NOTE | 2021-12-15 18:30 | NUR ---
ARRIVAL TO PCU/SHIFT SUMMARY PATIENT ARRIVED TO PCU VIA ED GURNEY BED. PATIENT TRASNFERD FROM GURNEY TO PCU BED BY AMBULATING. PATIENT CAN ABMUBLATE INDEPENDTLY IN ROOM, AND TO CALL FOR ASSISTANCE IF HE NEEDS IT. PATIENT IS ALERT AND ORIENTED X4. PERRLA. NEURO IS INTACT. PATIENT LUNG SOUNDS CLEAR/DIM/COARSE. VSS. SPO2 >90% ON RA. TELE SINUS TACH. PATIENT REPORTS NO CHEST PAIN/PRESSURE. STRONG RADIAL AND PEDIS PULSES BILATERALLY. PATIENT FISUTAL HAS BURIT AND TRHILL ON LEFT FOREARM. PATIENT HAS NO APPARENT SKIN ISSUES THAT THIS RN NOTICED. PATIENT IS HAVING LOOSE STOOLS. STOOL SAMPLE SENT TO LAB. PATIENT ORIENTED TO ROOM AND CALL LIGHT. CALL LIGHT WITHIN REACH AND WILL CONTINUE TO MONITOR AND PROVIDE CARE UNTIL HAND OFF WITH NEXT SHIFT.
[2021-12-15 20:09] LABS: C DIFFICILE DNA NEGATIVE (Negative)
[2021-12-16 04:37] LABS: BASOPHILS ABSOLUTE AUTO 0.05 K/mm3 (0.00-0.23); BASOPHILS PERCENT AUTO 1 % (0-2); EOSINOPHILS ABSOLUTE AUTO 0.09 K/mm3 (0.00-0.68); EOSINOPHILS PERCENT AUTO 2 % (0-6); Hematocrit 30.3 % (37.0-53.0); Hemoglobin 10.1 g/dL (13.5-17.5); IMMATURE GRAN ABSOLUTE AUTO 0.01 K/mm3 (0.00-0.10); IMMATURE GRAN PERCENT AUTO 0 % (0-1); LYMPHOCYTES ABSOLUTE AUTO 0.79 K/mm3 (0.84-5.20); LYMPHOCYTES PERCENT AUTO 17 % (21-46); MONOCYTES ABSOLUTE AUTO 0.87 K/mm3 (0.16-1.47); MONOCYTES PERCENT AUTO 18 % (4-13); Mean Corpuscular HGB 33.6 pg (26.0-34.0); Mean Corpuscular HGB Conc 33.3 g/dL (31.5-36.5); Mean Corpuscular Volume 101 fL (80-100); Mean Platelet Volume 10.3 fL (9.1-12.4); NEUTROPHILS ABSOLUTE AUTO 2.95 K/mm3 (1.96-9.15); NEUTROPHILS PERCENT AUTO 62 % (41-73); Platelet Count 172 K/mm3 (150-400); RDW Coefficient Variation 14.9 % (11.7-14.2); RDW Standard Deviation 54.9 fL (35.1-46.3); Red Blood Cell Count 3.01 M/mm3 (4.30-5.90); White Blood Cell Count 4.76 K/mm3 (4.00-11.30)
[2021-12-16 05:15] LABS: Albumin, Blood 3.1 g/dL (3.4-5.0); Albumin/Globulin Ratio 0.8 (0.8-1.8); Bilirubin, Total 1.5 mg/dL (0.1-1.0); Bun/Creatinine Ratio 8.1 (12.0-20.0); Calcium, Blood 9.5 mg/dL (8.5-10.1); Creatinine, Blood 7.93 mg/dL (0.60-1.20); Magnesium, Blood 2.1 mg/dL (1.6-2.4); Phosphorus, Blood 6.8 mg/dL (2.5-4.9); Potassium, Blood 5.3 mmol/L (3.5-5.5); Total Protein, Blood 7.1 g/dL (6.4-8.2)
--- NOTE | 2021-12-16 06:50 | NUR ---
ALERT AND ORIENTED X4. PT HAD URGENT HD DONE AT BESIDE 2.3L OFF. PER NEPHROLOGY MD PT IS ON TRANSPLANT LIST. PT HAD 3 EPISODE OF DIRRHEA. LEFT ARM AV FISTULA INTACT. DENIES PAIN. PER PT WILL HAVE ANOTHER SESSION OF HD TODAY AT 9 AM. SIDE RAIL UP X3 AND CALL LIGHT WITHIN REACH.
[2021-12-16 10:54] LABS: Campylobacter Sp Not Detected (NOT DETECT)
[2021-12-16 10:55] LABS: Adenovirus F 40/41 Detected (NOT DETECT); Astrovirus Not Detected (NOT DETECT); Cryptosporidium Not Detected (NOT DETECT); Cyclospora Cayetanensis Not Detected (NOT DETECT); E. Coli O157 Not Detected (NOT DETECT); Entamoeba Histolytica Not Detected (NOT DETECT); Enteroaggregative E. coli-EAEC Not Detected (NOT DETECT); Enteropathogenic E. coli-EPEC Not Detected (NOT DETECT); Enterotoxigenic E. coli-ETEC Not Detected (NOT DETECT); Giardia Lamblia Not Detected (NOT DETECT); Norovirus GI/GII Not Detected (NOT DETECT); Plesiomonas Shigelloides Not Detected (NOT DETECT); Rotavirus A Not Detected (NOT DETECT); Salmonella Sp Not Detected (NOT DETECT); Sapovirus Not Detected (NOT DETECT); Shiga Toxin-prod E. coli-STEC Not Detected (NOT DETECT); Shigella/Enteroin E. coli-EIEC Not Detected (NOT DETECT); Vibrio Cholerae Not Detected (NOT DETECT); Vibrio Sp Not Detected (NOT DETECT); Yersinia Enterocolitica Not Detected (NOT DETECT)
--- NOTE | 2021-12-16 13:22 | NUR ---
DISCHARGE SUMMARY: PT TO AND FROM DIALYSIS TODAY, TOLERATES WELL. PT STATUS CLEARED FOR DISCHARGE. PT PROVIDED WITH DC INSTRUCTIONS AND PAPERWORK, PT V/U AND DENIES FURTHER QUESTIONS. PT DRESSES AND IS ASSISTED FROM UNIT VIA W/C IN NAD TO MEET HIS RIDE.
== END 2021-12-16 14:34 | disposition home or self-care (01) ==
LOC: ER 12:01 → PCU 16:45
PROVIDERS: Emergency Medicine; Physician Assistant; Student in an Organized Health Care Education/Training Program; ADMIT Internal Medicine
DX: E87.5 Hyperkalemia (principal); E11.22 Type 2 diabetes mellitus with diabetic chronic kidney disease; N18.6 End stage renal disease; E87.1 Hypo-osmolality and hyponatremia; I13.2 Hypertensive heart and chronic kidney disease with heart failure and with stage 5 chronic kidney disease, or end stage renal disease; I50.22 Chronic systolic (congestive) heart failure; D63.1 Anemia in chronic kidney disease; E78.5 Hyperlipidemia, unspecified; J96.11 Chronic respiratory failure with hypoxia; K21.9 Gastro-esophageal reflux disease without esophagitis; I25.10 Atherosclerotic heart disease of native coronary artery without angina pectoris; R19.7 Diarrhea, unspecified; E11.40 Type 2 diabetes mellitus with diabetic neuropathy, unspecified; E66.9 Obesity, unspecified; Z99.2 Dependence on renal dialysis; Z95.1 Presence of aortocoronary bypass graft; Z88.8 Allergy status to other drugs, medicaments and biological substances; Z95.828 Presence of other vascular implants and grafts; Z79.4 Long term (current) use of insulin
CPT/HCPCS: 0097U; 36415; 71045; 80047; 80053; 82140; 82947; 83735; 83880; 84100; 84484; 85014; 85025; 87493; 94644; A9270; J1644; J1815; J1940; J2405; J7799

== ENCOUNTER 2022-04-09 20:56 | Inpatient (IN) | payer MEDICARE ==
[~2022-04-09] VITALS: Ht 177.8 cm; Wt 95.4 kg
[2022-04-09 21:32] LABS: BASOPHILS ABSOLUTE AUTO 0.05 K/mm3 (0.00-0.23); BASOPHILS PERCENT AUTO 1 % (0-2); EOSINOPHILS ABSOLUTE AUTO 0.19 K/mm3 (0.00-0.68); EOSINOPHILS PERCENT AUTO 2 % (0-6); Hematocrit 28.4 % (37.0-53.0); Hemoglobin 9.4 g/dL (13.5-17.5); IMMATURE GRAN ABSOLUTE AUTO 0.02 K/mm3 (0.00-0.10); IMMATURE GRAN PERCENT AUTO 0 % (0-1); LYMPHOCYTES ABSOLUTE AUTO 0.46 K/mm3 (0.84-5.20); LYMPHOCYTES PERCENT AUTO 5 % (21-46); MONOCYTES ABSOLUTE AUTO 1.22 K/mm3 (0.16-1.47); MONOCYTES PERCENT AUTO 14 % (4-13); Mean Corpuscular HGB 32.6 pg (26.0-34.0); Mean Corpuscular HGB Conc 33.1 g/dL (31.5-36.5); Mean Corpuscular Volume 99 fL (80-100); Mean Platelet Volume 9.9 fL (9.1-12.4); NEUTROPHILS ABSOLUTE AUTO 6.81 K/mm3 (1.96-9.15); NEUTROPHILS PERCENT AUTO 78 % (41-73); Platelet Count 176 K/mm3 (150-400); RDW Coefficient Variation 14.2 % (11.7-14.2); RDW Standard Deviation 51.5 fL (35.1-46.3); Red Blood Cell Count 2.88 M/mm3 (4.30-5.90); White Blood Cell Count 8.75 K/mm3 (4.00-11.30)
[2022-04-09 21:52] LABS: Albumin, Blood 3.3 g/dL (3.4-5.0); Albumin/Globulin Ratio 0.7 (0.8-1.8); Bilirubin, Total 1.2 mg/dL (0.1-1.0); Bun/Creatinine Ratio 6.7 (12.0-20.0); Calcium, Blood 9.3 mg/dL (8.5-10.1); Creatinine, Blood 7.71 mg/dL (0.60-1.20); Globulin, Blood 4.7 g/dL (2.2-4.0); Potassium, Blood 5.4 mmol/L (3.5-5.5)
[2022-04-10 06:12] LABS: Bun/Creatinine Ratio 6.9 (12.0-20.0); Calcium, Blood 9.1 mg/dL (8.5-10.1); Creatinine, Blood 7.92 mg/dL (0.60-1.20); Potassium, Blood 5.2 mmol/L (3.5-5.5)
--- NOTE | 2022-04-10 06:16 | NUR ---
SHIFT SUMMARY PT NEW ED ADMIT THIS EVENING. PT REPORTS MISSING HIS LAST 3 DIALYSIS APPOINTMENTS. THE FIRST BECAUSE HE SAID HE WAS IN TOO MUCH PAIN AND THE NEXT TWO BECAUSE HE "COULDN'T DRIVE AND COULDN'T GET A RIDE". PT IS EDEMATOUS THROUGHOUT. REPORTING GENERALIZED PAIN THROUGHOUT AND SEVERE PAIN TO BLE'S, MORE HIS RIGHT THAN HIS LEFT. TYLENOL INEFFECTIVE. ONE TIME ORDER FOR ROXICODONE 5 MG. PT FINALLY RESTING AFTER BEING AWAKE ALL THROUGH THE NIGHT. FISTULA TO LFA. PT VERY SOB W/ MINIMAL EXERTION. HAS A DIFFICULT TIME RECOVERING. ON 4 L WHICH IS PT'S BASELINE, O2 SATS 100%. NO VOIDS THIS EVENING, EVEN AFTER DOSE OF BUMEX GIVEN. DR. RAMIREZ AWARE. PT REPORTS VERY LITTLE OUTPUT IS NORMAL FOR HIM. PT RESTING IN BED AT THIS TIME. WILL CONTINUE TO MONITOR.
--- NOTE | 2022-04-10 17:58 | NUR ---
SHIFT SUMMARY PATIENT MEDICATED X2 FOR PAIN. PATIENT DENIES NAUSEA AND SHORTNESS OF BREATH. PATIENT HAS NOT GOTTEN OUT OF BED DUE TO PAIN IN LEGS. PATIENT HAD DIALYSIS TODAY. 4L REMOVED. PATIENT TO BE RAN AGAIN TOMORROW. DIALYSIS CUT SHORT DUE TO CRAMPING IN PATIENT LEGS. ECHO COMPLETED. PATIENT SLEPT THIS AFTERNOON. PATIENT EATING AND DRINKING WELL. PATIENT IS PLEASANT AND COOPERATIVE WITH CARE. PARACENTESIS NOT DONE DUE TO NOT ENOUGH FLUID SEEN IN ULTRASOUND.
--- NOTE | 2022-04-11 05:19 | NUR ---
SHIFT SUMMARY ASSUMED CARE OF PT AROUND 1900. PT IS A/OX4. HEART SOUNDS REGULAR. LUNG SOUNDS CLEAR. ABD FIRM AND TENDER. PT C/O PAIN T/O THE NIGHT. FIRST IN HIS LEGS AND THEN IN HIS SACRUM. PT REFUSED PILLOWS BUT WANTED TO SIT UP DURING THE NIGHT. PT WAS GIVEN PAIN MEDICATIONS WITH LITTLE RESULTS. PT R LEG IS RED AND HOT TO TOUCH. BOTH LEGS ARE TENDER, PULSES FAINT. PT DID NOT VOID T/O THE NIGHT. FISTULA WRAPPED BUT BRUT AN THRILL PRESENT.
[2022-04-11 09:52] LABS: Albumin, Blood 2.7 g/dL (3.4-5.0); Anion Gap 11 mmol/L (6-16); Blood Urea Nitrogen 40 mg/dL (8-24); Bun/Creatinine Ratio 6.4 (12.0-20.0); CO2, Blood 31 mmol/L (21-32); Calcium, Blood 9.1 mg/dL (8.5-10.1); Chloride, Blood 93 mmol/L (98-108); Creatinine, Blood 6.23 mg/dL (0.60-1.20); Glomerular Filtration Rate 9 (60-); Glucose, Blood 126 mg/dL (70-99); Phosphorus, Blood 7.8 mg/dL (2.5-4.9); Potassium, Blood 5.1 mmol/L (3.5-5.5); Sodium, Blood 135 mmol/L (136-145)
--- NOTE | 2022-04-11 17:38 | NUR ---
SHIFT SUMMARY PATIENT MEDICATED FOR PAIN X3. PATIENT DENIES NAUSEA AND SHORTNESS OF BREATH. PATIENT HAD DIALYSIS THIS MORNING. 3.6L REMOVED. PATIENT STATES HE IS HAVING AN EASIER TIME BREATHING. PATIENT ON 4L, THIS IS BASELINE PER PATIENT. PATIENT HAVING A LOT OF PAIN IN RIGHT LOWER LEG. BELOW KNEE IS RED, WARM TO TOUCH, AND SWOLLEN. DR NOTIFIED. US OF LOWER EXTREMITY ORDERED, RESULTS NEGATIVE. PT AND OT ORDERED FOR PATIENT. PER DR. SHAFER NOTE, PATIENT TO RECIEVE DIALYSIS TOMORROW WELL. PATIENT IS EATING AND DRINKING WELL. PATIENT IS PLEASANT AND COOPERATIVE WITH CARE.
[2022-04-12 04:31] LABS: BASOPHILS ABSOLUTE AUTO 0.05 K/mm3 (0.00-0.23); BASOPHILS PERCENT AUTO 1 % (0-2); EOSINOPHILS ABSOLUTE AUTO 0.16 K/mm3 (0.00-0.68); EOSINOPHILS PERCENT AUTO 3 % (0-6); Hematocrit 27.3 % (37.0-53.0); Hemoglobin 8.7 g/dL (13.5-17.5); IMMATURE GRAN ABSOLUTE AUTO 0.01 K/mm3 (0.00-0.10); IMMATURE GRAN PERCENT AUTO 0 % (0-1); LYMPHOCYTES ABSOLUTE AUTO 0.48 K/mm3 (0.84-5.20); LYMPHOCYTES PERCENT AUTO 8 % (21-46); MONOCYTES ABSOLUTE AUTO 0.95 K/mm3 (0.16-1.47); MONOCYTES PERCENT AUTO 17 % (4-13); Mean Corpuscular HGB 32.8 pg (26.0-34.0); Mean Corpuscular HGB Conc 31.9 g/dL (31.5-36.5); Mean Corpuscular Volume 103 fL (80-100); NEUTROPHILS ABSOLUTE AUTO 4.06 K/mm3 (1.96-9.15); NEUTROPHILS PERCENT AUTO 71 % (41-73); Platelet Count 197 K/mm3 (150-400); RDW Standard Deviation 53.1 fL (35.1-46.3); Red Blood Cell Count 2.65 M/mm3 (4.30-5.90); White Blood Cell Count 5.71 K/mm3 (4.00-11.30)
[2022-04-12 05:02] LABS: Albumin, Blood 2.7 g/dL (3.4-5.0); Anion Gap 9 mmol/L (6-16); Blood Urea Nitrogen 31 mg/dL (8-24); Bun/Creatinine Ratio 6.4 (12.0-20.0); CO2, Blood 31 mmol/L (21-32); Calcium, Blood 8.7 mg/dL (8.5-10.1); Chloride, Blood 96 mmol/L (98-108); Creatinine, Blood 4.86 mg/dL (0.60-1.20); Glomerular Filtration Rate 13 (60-); Glucose, Blood 111 mg/dL (70-99); Phosphorus, Blood 6.2 mg/dL (2.5-4.9); Potassium, Blood 4.7 mmol/L (3.5-5.5); Sodium, Blood 136 mmol/L (136-145)
--- NOTE | 2022-04-12 05:43 | NUR ---
PT IS A/O, WEARS 4L O2 AT BASELINE. PT WILL BE HAVING DIALYSIS TODAY, CBG AC/HS. TELE MONITOR IN SR WITH 1 DEGREE BLOCK THIS SHIFT. LFA FISTULA.
--- NOTE | 2022-04-12 08:38 | NUR ---
CLARIFIED WITH DIALYSIS. HOLDING BP MED ALSO THEY ARE GIVING HECTOROL AND EPOITIN WITH DIALYSIS PER EMAR
--- NOTE | 2022-04-12 09:00 | NUR ---
PT PLEASANT COOP A/O X3. STATES PAIN IN LEGS MORE ON RT. IT IS RED AND LIGHTLY SWOLLEN, WARM TO TOUCH. PAIN IS MANAGEABLE AT THIS TIME. HE STATES CANNOT WALK AND BEAR WT ON LEGS NOW. FOR LAST 2 MONTHS. STATES HE PASSED OUT FROM PAIN. H/R REG, NO MURMUR NOTED. PER TELE NSR WITH PVC'S RATE 84. LUNGS CLEAR, DECREASED IN BASES BILAT. ABD LARGE EDEMA IN ABD. DEPENDANT. STATES LAST B/M [address] SAINI IN [place]. REQUEST BOWEL CARE MEDS. ANURIC MOSTLY, STATES MAYBE A 3/4 CUP URINE R/T DIALYSIS ON A DAILY BASIS. USES BEDPAN R/T PAIN TO STAND. BED IN LOW POSITION, CALLLITE IN REACH, CALLS APPROP DIALYSIS FISTULA ON LEFT ARM. WILL GET DIALYSIS TODAY 9AM
--- NOTE | 2022-04-12 11:40 | NUR ---
SPOKE TO DR SAINI. LEIAED D/C CBG EXCEPT FOR AM ONLY. D/C ACHS INSULIN.
--- NOTE | 2022-04-12 13:59 | NUR ---
O2 AT 99% ON 4L O2. TURNED DOWN TO 2L. MAINTAINING AT 94-95%
--- NOTE | 2022-04-12 16:58 | NUR ---
DR NGUYEN MIRALAX BID
--- NOTE | 2022-04-12 18:19 | NUR ---
PT PLEASANT TODAY. DID GET TO CHAIR TODAY WITH PT. WE PUT BACK WITH 2 ASST , TOOK A FEW STEPS TO TURN AND SET BACK TO BED. DID SO WITHOUT EXTRA PAIN MEDS. DID HAVE DIALYSIS TODAY. DR STARTED ON MIRALAX FOR NO BM 4 DAYS. ALSO STARTED ON COREG TODAY ALSO. PT STATES SEEMS SOME BETTER TODAY. BED IN LOW POSITION, CALL LITE IN REACH, CALLS APPROP
[2022-04-12 20:22] LABS: U Amphetamine Screen Not Detected; U Barbituate Screen Not Detected; U Benzodiazapine Screen Not Detected; U Buprenorphine Screen Not Detected; U Cannabinoids Screen Not Detected; U Cocaine Screen Not Detected; U Methadone Screen Not Detected; U Methamphetamine Screen Not Detected; U Opiates Screen DETECTED; U Phencyclidine Screen Not Detected
[2022-04-12 20:23] LABS: U Oxycodone Screen Not Detected; U Propoxyphene Screen Not Detected
--- NOTE | 2022-04-13 05:51 | NUR ---
PT IS A/O, MEDICATED THIS SHIFT FOR PAINFUL LEGS. DIALYSIS PT WITH LFA FISTULA, RLE RED; BILATERAL EDEMA, PT IS VERY WEAK. STOOD AT BEDSIDE AND URINATED 100 ML IN URINAL, SOB AND SHAKY. ON 2L 02 AT THIS TIME. 4L T/O MOST OF SHIFT DUE TO SOB.
--- NOTE | 2022-04-13 14:17 | NUR ---
CALLED DR SHAFER. NEPHROLOGY. BLADDER SCAN SHOS >1000. ALTHOUGH WT DOWN TO 107.1. ADB FIRM DEPENDANT EDEMA. DR REQUEST SRAIGHT CATH X1, ALMA MCCOYEY IF > 400 FLUID.
--- NOTE | 2022-04-13 17:57 | NUR ---
PT AO AND COOPERATIVE OF CARE. PT TREATED PER EMAR FOR PAIN. PT TWO PERSON WITH GAITBELT AND WALKER TO BEDSIDE COMMODE. PT WAS STRAIGHT CATHED AND LEFT IN FOR ONE HOUR ONLY 100 MLS OUTPUT WEBB REMOVED. CALL LIGHT IS WITHIN REACH WILL CONTINUE TO MONITOR.
[2022-04-14 04:44] LABS: BASOPHILS ABSOLUTE AUTO 0.03 K/mm3 (0.00-0.23); BASOPHILS PERCENT AUTO 1 % (0-2); EOSINOPHILS ABSOLUTE AUTO 0.28 K/mm3 (0.00-0.68); EOSINOPHILS PERCENT AUTO 6 % (0-6); Hematocrit 28.5 % (37.0-53.0); Hemoglobin 9.2 g/dL (13.5-17.5); IMMATURE GRAN ABSOLUTE AUTO 0.01 K/mm3 (0.00-0.10); IMMATURE GRAN PERCENT AUTO 0 % (0-1); LYMPHOCYTES ABSOLUTE AUTO 0.62 K/mm3 (0.84-5.20); LYMPHOCYTES PERCENT AUTO 13 % (21-46); MONOCYTES ABSOLUTE AUTO 0.81 K/mm3 (0.16-1.47); MONOCYTES PERCENT AUTO 17 % (4-13); Mean Corpuscular HGB 32.3 pg (26.0-34.0); Mean Corpuscular HGB Conc 32.3 g/dL (31.5-36.5); Mean Corpuscular Volume 100 fL (80-100); Mean Platelet Volume 9.7 fL (9.1-12.4); NEUTROPHILS ABSOLUTE AUTO 3.17 K/mm3 (1.96-9.15); NEUTROPHILS PERCENT AUTO 64 % (41-73); Platelet Count 187 K/mm3 (150-400); RDW Coefficient Variation 13.8 % (11.7-14.2); RDW Standard Deviation 50.3 fL (35.1-46.3); Red Blood Cell Count 2.85 M/mm3 (4.30-5.90); White Blood Cell Count 4.92 K/mm3 (4.00-11.30)
[2022-04-14 04:51] LABS: Albumin, Blood 2.5 g/dL (3.4-5.0); Anion Gap 8 mmol/L (6-16); Blood Urea Nitrogen 30 mg/dL (8-24); Bun/Creatinine Ratio 6.2 (12.0-20.0); CO2, Blood 32 mmol/L (21-32); Chloride, Blood 95 mmol/L (98-108); Creatinine, Blood 4.86 mg/dL (0.60-1.20); Glomerular Filtration Rate 13 (60-); Glucose, Blood 131 mg/dL (70-99); Phosphorus, Blood 5.5 mg/dL (2.5-4.9); Potassium, Blood 4.8 mmol/L (3.5-5.5); Sodium, Blood 135 mmol/L (136-145)
--- NOTE | 2022-04-14 05:06 | NUR ---
PT IS A/O, MEDICATED THIS SHIFT FOR PAIN IN LEGS. RLE RED, BILATERAL EDEMA. LFA DIALYSIS FISTULA. PT GETS EASILY SOB WITH ACTIVITY, 2L O2.
--- NOTE | 2022-04-14 17:14 | NUR ---
SHIFT SUMMARY PT RECIEVED DIALYSIS TODAY. WORKED WITH OCCUPATIONAL THERAPY AND GOT UP TO THE BSC FOR A BM. PT REFUSED TO GET INTO CHAIR TODAY, STATING HE IS "TOO TIRED". AGREEABLE TO GET UP TOMORROW. NO OTHER ACUTE CHANGES IN ASSESSMENT AT THIS TIME. MEDICATED FOR PAIN ONCE THIS SHIFT FOR TENDER LEGS. LEGS ELEVATED ON PILLOWS WHEN IN BED. CALL LIGHT IN REACH. PT CURRENTLY SLEEPING. VS REVIEWED.
--- NOTE | 2022-04-15 05:06 | NUR ---
PT MEDICATED THIS SHIFT FOR PAINFUL LEGS AND NAUSEA WITH VOMITTING. DIALYSIS PT, LFA FISTULA. O2 AT 2L N/C, PT IS SOB WITH EXERTION OR ACTIVITY. LAST DIALYSIS 04/14.
--- NOTE | 2022-04-15 08:21 | NUR ---
NAUSEA & VOMITING PT NAUSEATED THIS MORNING AND STARTED VOMITING. DR. SAINI NOTIFIED AND ZOFRAN ORDER CHANGED TO IV.
--- NOTE | 2022-04-15 17:29 | NUR ---
SHIFT SUMMARY PT RECIEVED DIALYSIS TODAY. NAUSEATED THIS AM. VOMITED ONCE THIS SHIFT. ZOFRAN ORDER CHANGED TO IV. PG PLACED TO CARMEN. PT STATES HE IS FEELING A LITTLE BETTER IN RELATION TO HIS NAUSEA THIS AFTERNOON, BUT IS STILL REFUSING TO EAT. PT SIPING ON A NEPRO. NO OTHER ACUTE CHANGES IN ASSESSMENT AT THIS TIME. VS REVIEWED. CALL LIGHT IN REACH. PT DENIES OTHER NEEDS AT THIS TIME.
--- NOTE | 2022-04-16 03:57 | NUR ---
SCARFER OPERATOR SUMMARY AWAKE AT INTERVALS, PAIN MEDS ADMINISTERED FOR BACK PAIN. SEE MAR FOR DETAILS. NO BM X 2 DAYS. COLACE GIVEN. INTERMITTENT EPISODES OF SITTING UP ON BEDSIDE, AND THEN HAVING ASSIST TO GET BACK INTO BED. AWAKE AT THIS TIME WATCHING TV. CALL LIGHT IN REACH. O2 AT 4L/MIN PER NC.
[2022-04-16 07:55] LABS: Albumin, Blood 2.8 g/dL (3.4-5.0); Anion Gap 5 mmol/L (6-16); Blood Urea Nitrogen 21 mg/dL (8-24); Bun/Creatinine Ratio 5.9 (12.0-20.0); CO2, Blood 36 mmol/L (21-32); Calcium, Blood 9.8 mg/dL (8.5-10.1); Chloride, Blood 97 mmol/L (98-108); Creatinine, Blood 3.53 mg/dL (0.60-1.20); Glomerular Filtration Rate 19 (60-); Glucose, Blood 137 mg/dL (70-99); Phosphorus, Blood 3.9 mg/dL (2.5-4.9); Potassium, Blood 3.8 mmol/L (3.5-5.5); Sodium, Blood 138 mmol/L (136-145)
--- NOTE | 2022-04-16 12:54 | NUR ---
PRIOR TO DIALYSIS THE PT C/O PAIN IN HIS TAILBONE. WHEN STAFF VISUALIZED THE AREA IT APPEARED RED WITH THE VERY CENTER OF THE REDNESS NOT BLANCHING PLACED A MPILEX OVER THE AREA TO PREVENT FURTHER BREAKDOWN. PT MEDICATED PRN.
--- NOTE | 2022-04-16 18:33 | NUR ---
SHIFT SUMMARY- PT SEEMS TO BE BREATHING BETTER THIS EVENING AFTER DIALYSIS REMOVED 3.5L FROM THE PT. PT IS NOT ON A FLUID RESTRICTION, SPOKE TO DR SHAFER AND SHE DOES NOT WANT A FLUID RESTRICTION AT THIS TIME THE PT HAS HAD MINIML PO INTAKE. ALTHOUGH THE PT IS EATING DINNER AND APPEARSS TO LIKE THE NEPRO. ORDERED AN ADDITIONAL NEPRO FROM THE KITCHEN FOR TONIGHT. PT CURRENTLY IN BED, CALL LIGHT IN REACH NO S&S OF DISTRESS NOTED, WILL CTM AND PASS ON TO NIGHT RN IN BEDSIDE REPORT.
[2022-04-17 05:07] LABS: Albumin, Blood 2.8 g/dL (3.4-5.0); Anion Gap 4 mmol/L (6-16); Blood Urea Nitrogen 20 mg/dL (8-24); Bun/Creatinine Ratio 6.4 (12.0-20.0); CO2, Blood 37 mmol/L (21-32); Chloride, Blood 97 mmol/L (98-108); Creatinine, Blood 3.12 mg/dL (0.60-1.20); Glomerular Filtration Rate 22 (60-); Glucose, Blood 118 mg/dL (70-99); Phosphorus, Blood 3.9 mg/dL (2.5-4.9); Sodium, Blood 138 mmol/L (136-145)
--- NOTE | 2022-04-17 05:25 | NUR ---
PT NOTED WITH INTERMITTENT DRY COUGH. PT REPORTS THIS IS NOT A NEW ISSUE AND REQUESTING SOMETHING FOR IT. MD CONTACTED WITH ORDER PER DEC. PT ALSO HAD EPISODE IN WHICH HE REPORTED FEELING SOB, O2 SATS 98% ON 4L NC, LUNGS CLEAR AND PT NOTED TO BE ANXIOUS. WHEN PT ASKED IF HE WAS ANXIOUS HE REPORTED HE WAS AND THAT AT TIMES HE IS ABLE TO SLEEP AND SUDDENLY WAKES UP FEELING ANXIOUS. MD CONTACTED WITH ORDER FOR ATIVAN 0.5 MG X1. MEDICATION GIVEN AND PT REPORTED FEELING MUCH BETTER AFTERWARDS. PT ASKING IF HE CAN HAVE SOMETHING FOR ANXIETY AT NIGHT TO HELP ME SLEEP HE REPORTED THE ATIVAN GREATLY HELPED WITH HIS ANXIETY. WILL ENDORSE TO ONCOMING RN.
[2022-04-17 10:11] LABS: BASOPHILS ABSOLUTE AUTO 0.04 K/mm3 (0.00-0.23); BASOPHILS PERCENT AUTO 1 % (0-2); EOSINOPHILS ABSOLUTE AUTO 0.18 K/mm3 (0.00-0.68); EOSINOPHILS PERCENT AUTO 4 % (0-6); Hematocrit 27.3 % (37.0-53.0); Hemoglobin 8.7 g/dL (13.5-17.5); IMMATURE GRAN ABSOLUTE AUTO 0.05 K/mm3 (0.00-0.10); IMMATURE GRAN PERCENT AUTO 1 % (0-1); LYMPHOCYTES ABSOLUTE AUTO 0.48 K/mm3 (0.84-5.20); LYMPHOCYTES PERCENT AUTO 10 % (21-46); MONOCYTES ABSOLUTE AUTO 0.56 K/mm3 (0.16-1.47); MONOCYTES PERCENT AUTO 12 % (4-13); Mean Corpuscular HGB 32.8 pg (26.0-34.0); Mean Corpuscular HGB Conc 31.9 g/dL (31.5-36.5); Mean Corpuscular Volume 103 fL (80-100); Mean Platelet Volume 9.5 fL (9.1-12.4); NEUTROPHILS PERCENT AUTO 73 % (41-73); Platelet Count 147 K/mm3 (150-400); RDW Coefficient Variation 14.2 % (11.7-14.2); RDW Standard Deviation 53.1 fL (35.1-46.3); Red Blood Cell Count 2.65 M/mm3 (4.30-5.90); White Blood Cell Count 4.81 K/mm3 (4.00-11.30)
--- NOTE | 2022-04-17 19:19 | NUR ---
SHIFT SUMMARY- PT ALERT AND ORIENTED X3. PT HAD DIALYSISS AGAIN TODAY REMOVED AN ADDITIONAL 3.5L OF FLUID. HE WILL HAVE TOMORROW OFF FROM DIALYSIS PER DR SHAFER. THE PLAN IS TO INCREASE THE OUT PT FREQUENCY OF DIALYSIS FROM TO FOR A WHILE TO ALLOW THE PT TO CATCH UP A LITTLE ON HIS FLUID OVERLOAD. PT IS CURRENTLY IN BED SLEEPING, NO S&S OF DISTRESS BEDSIDE REPORT COMPLETED.
[2022-04-18 05:17] LABS: Albumin, Blood 2.9 g/dL (3.4-5.0); Anion Gap 5 mmol/L (6-16); Blood Urea Nitrogen 21 mg/dL (8-24); Bun/Creatinine Ratio 7.1 (12.0-20.0); CO2, Blood 35 mmol/L (21-32); Calcium, Blood 9.8 mg/dL (8.5-10.1); Chloride, Blood 95 mmol/L (98-108); Creatinine, Blood 2.97 mg/dL (0.60-1.20); Glomerular Filtration Rate 23 (60-); Glucose, Blood 135 mg/dL (70-99); Phosphorus, Blood 3.3 mg/dL (2.5-4.9); Potassium, Blood 3.6 mmol/L (3.5-5.5); Sodium, Blood 135 mmol/L (136-145)
--- NOTE | 2022-04-18 05:39 | NUR ---
PT NOTED TO BE VERY ANXIOUS AND IN A LOT OF PAIN. PT MEDICATED WITH FENTANYL 50MCG AND DIEGO TO REST. PT STATES HE HAS ANXIETY AND WOULD LIKE TO HAVE SOMETHING AT NIGHT TO HELP HIM REST. PT ALSO C/O OF NAUSEA AND MEDICATED PER DEC. PT LBM 04/15 AND PT EDUCATED AND ENCOURAGED TO TAKE MEDICATIONS TO HELP KEEP HIS BOWELS REGULAR. PT STATES HE HAD BEEN DECLINING TO TAKE THEM HIS LAST BM WAS LOOSE/LIQUID HOWEVER STATES THAT HE KNOWS ITS GOING ON 3 DAYS AND WILL TAKE MEDICATIONS MORE CONSISTENTLY. PT DID NOT VOID HOWEVER BLADDER SCAN DONE AT 5 AM SHOWED 49 ML. PT REPORTS SOMETIMES HE MAKES URINE AND OTHER TIMES HE DOESN'T MAKE ANY AT ALL. DOES REPORT THAT HE WAS STRAIGHT CATH ONCE WHILE BEING HERE AND STATED THAT HE WOULD NEVER ALLOWED ANYONE TO DO THAT AGAIN HE REPORTS IT WAS VERY PAINFUL.
--- NOTE | 2022-04-18 19:42 | NUR ---
PATIENT IS ALERT AND ORIENTED. C/O NAUSEA AND VOMITING TODAY, MEDICATED PER EMAR. C/O LEG AND BACK PAIN, MEDICATED PER EMAR. NO DIALYSIS TODAY. PATIENT ATE BREAKFAST AND DINNER, REFUSED DINNER.
--- NOTE | 2022-04-18 22:17 | NUR ---
PATIENT REFUSED HS MIRALAX AND COLACE. STATED HE WOULD NOT TAKE HEPARIN INJECTION "ANY MORE, ESPECIALLY TWICE DAILY", TRIED EXPLAINING THAT THE HEPARIN HE RECEIVES IN DIALYSIS SERVES A DIFFERENT PURPOSE THAN THE SUBQ THROMBUS PROPHALAXIS GIVEN WHILE HOSPITALIZED. WILL NOTIFY AM RN SO SHE CAN SPEAK WITH ROUNDING HOSPITALIST TOMORROW.
[2022-04-19 06:03] LABS: Albumin, Blood 2.9 g/dL (3.4-5.0); Anion Gap 7 mmol/L (6-16); Blood Urea Nitrogen 32 mg/dL (8-24); CO2, Blood 34 mmol/L (21-32); Calcium, Blood 9.8 mg/dL (8.5-10.1); Chloride, Blood 94 mmol/L (98-108); Glomerular Filtration Rate 16 (60-); Glucose, Blood 115 mg/dL (70-99); Phosphorus, Blood 4.4 mg/dL (2.5-4.9); Sodium, Blood 135 mmol/L (136-145)
--- NOTE | 2022-04-19 08:00 | NUR ---
pt sitting on the side of the bed eating breakfast, a/ox3, pleasant and cooperative with care, follows commands well, denies pain, understands he will have dialyis today, Glucose this am 108, lungs are clear in upper [place], dim in bases, on 4 liters 02 via n/c, which he is on chronically, resp even and unlabored, no cough noted, hrr, edema noted to b/l le, 2+ pitting to right foot, 1+ to left, power glide to gerry, site is clear and patent, btx4, hypoactive, reports a bm yesterday, voids scan amounts at a time, skin is dusky, no open areas, rosalie kyle, call light in reach. will take to dialysis at 0900.
[2022-04-19 16:17] LABS: BASOPHILS ABSOLUTE AUTO 0.03 K/mm3 (0.00-0.23); BASOPHILS PERCENT AUTO 1 % (0-2); EOSINOPHILS ABSOLUTE AUTO 0.08 K/mm3 (0.00-0.68); EOSINOPHILS PERCENT AUTO 2 % (0-6); Hemoglobin 8.8 g/dL (13.5-17.5); IMMATURE GRAN ABSOLUTE AUTO 0.03 K/mm3 (0.00-0.10); IMMATURE GRAN PERCENT AUTO 1 % (0-1); LYMPHOCYTES ABSOLUTE AUTO 0.52 K/mm3 (0.84-5.20); LYMPHOCYTES PERCENT AUTO 11 % (21-46); MONOCYTES PERCENT AUTO 19 % (4-13); Mean Corpuscular HGB 32.5 pg (26.0-34.0); Mean Corpuscular HGB Conc 31.4 g/dL (31.5-36.5); Mean Corpuscular Volume 103 fL (80-100); Mean Platelet Volume 10.1 fL (9.1-12.4); NEUTROPHILS ABSOLUTE AUTO 3.31 K/mm3 (1.96-9.15); NEUTROPHILS PERCENT AUTO 68 % (41-73); Platelet Count 146 K/mm3 (150-400); RDW Coefficient Variation 14.6 % (11.7-14.2); RDW Standard Deviation 54.8 fL (35.1-46.3); Red Blood Cell Count 2.71 M/mm3 (4.30-5.90); White Blood Cell Count 4.87 K/mm3 (4.00-11.30)
--- NOTE | 2022-04-19 18:16 | NUR ---
pt had dialysis today, was very tired after, medicated for pain once, no further changes this shift. call light in reach.
[2022-04-20 05:42] LABS: Anion Gap 6 mmol/L (6-16); Blood Urea Nitrogen 31 mg/dL (8-24); Bun/Creatinine Ratio 8.6 (12.0-20.0); CO2, Blood 35 mmol/L (21-32); Calcium, Blood 9.7 mg/dL (8.5-10.1); Chloride, Blood 95 mmol/L (98-108); Creatinine, Blood 3.59 mg/dL (0.60-1.20); Ferritin, Serum 444 ng/mL (26-388); Glomerular Filtration Rate 18 (60-); Glucose, Blood 131 mg/dL (70-99); Iron Serum 52 ug/dL (65-175); Percent Saturation 27.4 % (20.0-50.0); Phosphorus, Blood 3.4 mg/dL (2.5-4.9); Potassium, Blood 3.9 mmol/L (3.5-5.5); Sodium, Blood 136 mmol/L (136-145); Total Iron Binding Capacity 190 ug/dL (250-450)
--- NOTE | 2022-04-20 07:28 | NUR ---
PATIENT WAS AWAKE MOST OF THE NIGHT. HE RECEIVED ONE NORCO AT FOR 7/10 LEG PAIN WHICH RESOLVED HIS DISCOMFORT TO A TOLERABLE LEVEL, AROUND MIDNIGHT, PATIENT CALLED FOR ZOFRAN, HOWEVER HE WAS ALREADY VOMITING A COMBINATION OF UNDESOLVED FOOD AND BILE. EMESIS WAS ABOUT 100ML WITH SOLIDS INTERMINGLED. ZOFRAN RESOLVED THE NAUSEA WITHIN ABOUT10 MINUTES. THE REST OF THE NIGHT, HE SAT ON THE SIDE OF THE BED IN KIND OF A TRIPOD POSITION. 02 WAS IN LOW 90'S ON 3L N/C. AND STATED HE WASN'T SOB, JUST NOT READY TO SLEEP.
--- NOTE | 2022-04-20 08:00 | NUR ---
pt sitting on the side of the bed listening to the tv, in good spirits this am, states he had a good night last night and feels good, a/ox3, pleasant and cooperative with care, follows commands well, denies pain, lungs are clear in upper [place], dim in bases, no cough noted, currently on 4li, this is also his home dose, resp even and unlabord, hrr, edema noted to b/l le, has fistula to left arm, power glide to gerry site is clear and patent, but does't draw, btx4, hypoactive, reports bm last night, voids scant amount of urine, skin is dusky, c/w/d, maew, one person assist to ambulate, rosalie, call light i reach.
--- NOTE | 2022-04-20 12:21 | NUR ---
pt called nurse for something for anxiety, he doesn't have anything durring the day, opened his curtains, gave him a pain pill for 8/10 pain, to his bottom and left leg, he reports it didn't help much, set up a heating pad for him, eating lunch at this time, call light in reach.
[2022-04-20 16:22] LABS: BASOPHILS ABSOLUTE AUTO 0.04 K/mm3 (0.00-0.23); BASOPHILS PERCENT AUTO 1 % (0-2); EOSINOPHILS ABSOLUTE AUTO 0.18 K/mm3 (0.00-0.68); EOSINOPHILS PERCENT AUTO 3 % (0-6); Hemoglobin 9.2 g/dL (13.5-17.5); IMMATURE GRAN ABSOLUTE AUTO 0.02 K/mm3 (0.00-0.10); IMMATURE GRAN PERCENT AUTO 0 % (0-1); LYMPHOCYTES ABSOLUTE AUTO 0.65 K/mm3 (0.84-5.20); LYMPHOCYTES PERCENT AUTO 12 % (21-46); MONOCYTES ABSOLUTE AUTO 0.93 K/mm3 (0.16-1.47); MONOCYTES PERCENT AUTO 17 % (4-13); Mean Corpuscular HGB 32.5 pg (26.0-34.0); Mean Corpuscular HGB Conc 31.7 g/dL (31.5-36.5); Mean Corpuscular Volume 103 fL (80-100); Mean Platelet Volume 10.1 fL (9.1-12.4); NEUTROPHILS ABSOLUTE AUTO 3.72 K/mm3 (1.96-9.15); NEUTROPHILS PERCENT AUTO 67 % (41-73); Platelet Count 176 K/mm3 (150-400); RDW Coefficient Variation 14.6 % (11.7-14.2); RDW Standard Deviation 54.3 fL (35.1-46.3); Red Blood Cell Count 2.83 M/mm3 (4.30-5.90); White Blood Cell Count 5.54 K/mm3 (4.00-11.30)
--- NOTE | 2022-04-20 18:01 | NUR ---
pt had a shower today, no acute changes today, he is very tired from doing the shower, otherwise has been in good spirits, call light in reach.
[2022-04-21 05:44] LABS: Albumin, Blood 2.8 g/dL (3.4-5.0); Anion Gap 7 mmol/L (6-16); Blood Urea Nitrogen 44 mg/dL (8-24); Bun/Creatinine Ratio 10.1 (12.0-20.0); CO2, Blood 33 mmol/L (21-32); Calcium, Blood 9.7 mg/dL (8.5-10.1); Chloride, Blood 91 mmol/L (98-108); Creatinine, Blood 4.37 mg/dL (0.60-1.20); Glomerular Filtration Rate 14 (60-); Glucose, Blood 114 mg/dL (70-99); Phosphorus, Blood 3.7 mg/dL (2.5-4.9); Potassium, Blood 4.2 mmol/L (3.5-5.5); Sodium, Blood 131 mmol/L (136-145)
--- NOTE | 2022-04-21 06:45 | NUR ---
61 year old Male with ESRD on hemodialysis 3 times a week via lt arm AV fistula. PT on baseline 4 l oxygen & medicated for hacking nonprod cough x 1. Medicated for bilat le pain with norco x 2 with helpful effect. Will recieve Hemodialysis today per MD order. Up with rolling walker in room . Drank a nepro per his request.
--- NOTE | 2022-04-21 07:52 | NUR ---
pt sitting on the side of the bed, states he had a bad night last night, was having some nausia, and still is, asked why he didn't call his nurse, he said he fell asleep, a/ox3, sleepy, cooperative with care, follows commands well, states he has a little pain, was medicated recently, lungs are clear in upper [place], very dim in bases, on 4 liters 02 via n/c, no cough noted, hrr, power glide to gerry site is clear and patent, 3+edema noted to rle, 2+to lle, btx4, hypoactive, abd round soft nontender, voids scant amount of tea colored urine, skin is dusky, has mepilex to coccyx for prevention, macecil, weak, sba using a walker to ambulate, rosalie, call light in reach.
[2022-04-21 16:28] LABS: BASOPHILS ABSOLUTE AUTO 0.03 K/mm3 (0.00-0.23); BASOPHILS PERCENT AUTO 1 % (0-2); EOSINOPHILS ABSOLUTE AUTO 0.16 K/mm3 (0.00-0.68); EOSINOPHILS PERCENT AUTO 3 % (0-6); IMMATURE GRAN ABSOLUTE AUTO 0.02 K/mm3 (0.00-0.10); IMMATURE GRAN PERCENT AUTO 0 % (0-1); LYMPHOCYTES ABSOLUTE AUTO 0.49 K/mm3 (0.84-5.20); LYMPHOCYTES PERCENT AUTO 10 % (21-46); MONOCYTES ABSOLUTE AUTO 0.79 K/mm3 (0.16-1.47); MONOCYTES PERCENT AUTO 17 % (4-13); Mean Corpuscular HGB 32.8 pg (26.0-34.0); Mean Corpuscular HGB Conc 33.3 g/dL (31.5-36.5); Mean Corpuscular Volume 99 fL (80-100); Mean Platelet Volume 10.6 fL (9.1-12.4); NEUTROPHILS ABSOLUTE AUTO 3.21 K/mm3 (1.96-9.15); NEUTROPHILS PERCENT AUTO 68 % (41-73); Platelet Count 163 K/mm3 (150-400); RDW Coefficient Variation 14.7 % (11.7-14.2); RDW Standard Deviation 52.7 fL (35.1-46.3); Red Blood Cell Count 2.74 M/mm3 (4.30-5.90)
--- NOTE | 2022-04-21 18:40 | NUR ---
Jonathan had a short run of dialysis today, wasn't tolerating so they stopped early, was reported removed about 1000mls, will do again tomorrow and pt is aware, gave cough syrup this evening, he has been pretty tired since he came back from dialysis, no acute changes this shift, call light in reach.
[2022-04-22 06:01] LABS: Albumin, Blood 2.9 g/dL (3.4-5.0); Anion Gap 4 mmol/L (6-16); Blood Urea Nitrogen 42 mg/dL (8-24); Bun/Creatinine Ratio 10.6 (12.0-20.0); CO2, Blood 34 mmol/L (21-32); Calcium, Blood 9.5 mg/dL (8.5-10.1); Chloride, Blood 94 mmol/L (98-108); Creatinine, Blood 3.95 mg/dL (0.60-1.20); Glomerular Filtration Rate 16 (60-); Glucose, Blood 100 mg/dL (70-99); Phosphorus, Blood 3.1 mg/dL (2.5-4.9); Potassium, Blood 3.9 mmol/L (3.5-5.5); Sodium, Blood 132 mmol/L (136-145)
--- NOTE | 2022-04-22 07:48 | NUR ---
61 year old MAle with ESRD on hemodialysis x 3.5 years shows improvement in mobility has fair safety awareness. Exersizing & up in room with fww. Plans to return home for outpt dialysis has Sister who lives with PT available to assist with cares.
[2022-04-22] MEDS ORDERED: CLOP75 PO (11:50)
[2022-04-22] MEDS ORDERED: ONDA4ODT MM (11:52)
[2022-04-22] MEDS ORDERED: Acetaminophen325 M1 PO (11:53)
[2022-04-22] MEDS ORDERED: ALBU2.5V5 INH (11:53)
[2022-04-22] MEDS ORDERED: CARV3.125 PO (11:54)
[2022-04-22] MEDS ORDERED: Q-Tussin100 MG/5 M PO (11:56)
[2022-04-22] MEDS ORDERED: HYDR1TAB94 PO (11:56)
[2022-04-22] MEDS ORDERED: METO5A PO (11:57)
[2022-04-22] MEDS ORDERED: MIRALAX17 GM PO (11:57)
[2022-04-22 14:20] LABS: Influenza A, PCR NEGATIVE (NEGATIVE); Influenza B, PCR NEGATIVE (NEGATIVE); Resp Syncytial Virus, PCR NEGATIVE (NEGATIVE); SARS-Cov-2 (COVID-19) PCR, MMC NEGATIVE (NEGATIVE)
--- NOTE | 2022-04-22 15:04 | NUR ---
REPORT CALLED TO [facility] AT 1500 ON 04/22/22
== END 2022-04-22 15:35 | DRG 640 ==
LOC: ER 20:56 → MEDS 04-10 00:58
PROVIDERS: Internal Medicine; Internal Medicine Nephrology; Physician Assistant; ADMIT Internal Medicine
PROC: 5A1D70Z Performance of Urinary Filtration, Intermittent, Less than 6 Hours Per Day (ICD-10-PCS; principal; 2022-04-10)
DX: E87.70 Fluid overload, unspecified (principal); N18.6 End stage renal disease; I13.2 Hypertensive heart and chronic kidney disease with heart failure and with stage 5 chronic kidney disease, or end stage renal disease; I31.3 Pericardial effusion (noninflammatory); I50.22 Chronic systolic (congestive) heart failure; J91.8 Pleural effusion in other conditions classified elsewhere; J96.11 Chronic respiratory failure with hypoxia; E87.1 Hypo-osmolality and hyponatremia; Z66 Do not resuscitate; E11.22 Type 2 diabetes mellitus with diabetic chronic kidney disease; Z20.822 Contact with and (suspected) exposure to COVID-19; I27.20 Pulmonary hypertension, unspecified; R14.0 Abdominal distension (gaseous); K59.00 Constipation, unspecified; R11.2 Nausea with vomiting, unspecified; E11.43 Type 2 diabetes mellitus with diabetic autonomic (poly)neuropathy; K31.84 Gastroparesis; E11.40 Type 2 diabetes mellitus with diabetic neuropathy, unspecified; G47.00 Insomnia, unspecified; F41.9 Anxiety disorder, unspecified; E78.5 Hyperlipidemia, unspecified; E87.5 Hyperkalemia; D63.1 Anemia in chronic kidney disease; I34.0 Nonrheumatic mitral (valve) insufficiency; K22.70 Barrett's esophagus without dysplasia; I25.10 Atherosclerotic heart disease of native coronary artery without angina pectoris; E55.9 Vitamin D deficiency, unspecified; Z91.15 Patient's noncompliance with renal dialysis; Z99.81 Dependence on supplemental oxygen; Z99.2 Dependence on renal dialysis; Z90.49 Acquired absence of other specified parts of digestive tract; Z95.1 Presence of aortocoronary bypass graft; Z98.890 Other specified postprocedural states; Z88.8 Allergy status to other drugs, medicaments and biological substances; Z79.02 Long term (current) use of antithrombotics/antiplatelets; Z79.899 Other long term (current) drug therapy
CPT/HCPCS: 0241U; 36415; 71045; 76705; 80048; 80053; 80069; 82728; 82947; 83540; 83550; 83970; 85018; 85025; 87040; 93971; 94640; 94664; 94760; 94762; 97110; 97116; 97162; 97166; 97530; 97530-CQ; 99285-25; A9270; C8929; C9113; J1270; J1644; J2405; J3010; Q5106; Q9957

== ENCOUNTER 2022-05-14 10:11 | Inpatient (IN) | payer MEDICARE, MEDICAID ==
[~2022-05-14] VITALS: Ht 177.8 cm; Wt 89.8 kg
[~2022-05-14 10:11] MED LIST changes: +ALBU2.5V5 INH; +Acetaminophen325 M1 PO; +CARV3.125 PO; +CLOP75 PO; +HYDR1TAB94 PO; +METO5A PO; +MIRALAX17 GM PO; +ONDA4ODT MM; +Q-Tussin100 MG/5 M PO
[2022-05-14 10:46] LABS: BASOPHILS ABSOLUTE AUTO 0.01 K/mm3 (0.00-0.23); BASOPHILS PERCENT AUTO 0 % (0-2); EOSINOPHILS PERCENT AUTO 0 % (0-6); Hematocrit 23.5 % (37.0-53.0); Hemoglobin 7.6 g/dL (13.5-17.5); IMMATURE GRAN ABSOLUTE AUTO 0.03 K/mm3 (0.00-0.10); IMMATURE GRAN PERCENT AUTO 1 % (0-1); LYMPHOCYTES ABSOLUTE AUTO 0.48 K/mm3 (0.84-5.20); LYMPHOCYTES PERCENT AUTO 8 % (21-46); MONOCYTES ABSOLUTE AUTO 0.79 K/mm3 (0.16-1.47); MONOCYTES PERCENT AUTO 12 % (4-13); Mean Corpuscular HGB 32.6 pg (26.0-34.0); Mean Corpuscular HGB Conc 32.3 g/dL (31.5-36.5); Mean Corpuscular Volume 101 fL (80-100); Mean Platelet Volume 9.8 fL (9.1-12.4); NEUTROPHILS ABSOLUTE AUTO 5.06 K/mm3 (1.96-9.15); NEUTROPHILS PERCENT AUTO 79 % (41-73); Platelet Count 140 K/mm3 (150-400); RDW Coefficient Variation 15.7 % (11.7-14.2); RDW Standard Deviation 57.4 fL (35.1-46.3); Red Blood Cell Count 2.33 M/mm3 (4.30-5.90); White Blood Cell Count 6.37 K/mm3 (4.00-11.30)
[2022-05-14 10:58] LABS: Albumin, Blood 3.1 g/dL (3.4-5.0); Albumin/Globulin Ratio 0.7 (0.8-1.8); Bun/Creatinine Ratio 7.5 (12.0-20.0); Calcium, Blood 9.7 mg/dL (8.5-10.1); Creatinine, Blood 4.95 mg/dL (0.60-1.20); Globulin, Blood 4.3 g/dL (2.2-4.0); Potassium, Blood 5.3 mmol/L (3.5-5.5); Total Protein, Blood 7.4 g/dL (6.4-8.2)
--- NOTE | 2022-05-14 16:02 | NUR ---
PATIENT ARRIVED TO THE ROOM AT 1450. ATTENDS CHANGED AND PATIENT CLEANED UP. DIALYSIS AT BEDSIDE TO START HEMODIALYSIS IMMEDIATELY UPON HIS ARRIVAL. PATIENT IS CONFUSED. SLEEPING BUT AROUSABLE. ORIENTED TO NAME AND . PATIENT STATED HE IS IN [place] AND WHEN CORRECTED HE COULDNT SAY WHY HE IS HERE AT THE HOSPITAL. PATIENT IS UNDERGOING DIALYSIS AT THIS TIME.
--- NOTE | 2022-05-14 16:52 | NUR ---
PATIENT IS DISORIENTED AT THIS TIME AND TOA. UNABLE TO EXPLAIN TO HIM HOW FALL PRECAUTIONS, HOW TO USE CALL LIGHT, HOW TO CALL OIL EXTRACTOR AND SO ON. WILL COMMUNITCATE THIS WITH PT IF HE IS REORIENTED.
[2022-05-14 17:19] LABS: Hematocrit 21.6 % (37.0-53.0); Hemoglobin 7.1 g/dL (13.5-17.5)
--- NOTE | 2022-05-14 18:31 | NUR ---
PATIENT IS SLEEPING/AROUSABLE. PATIENT JUST FINISHED DIALYSIS IN THE ROOM. PATIENT HAS BEEN ASLEEP SINCE HIS ARRIVAL. INCONTINENT OF BOWEL AND BLADDER. ATTENDS IN PLACE. ON 3L O2 VIA NC. TELE IN PLACE SR 80 BPM PER BACK JOINER. PATIENT IS CONFUSED, HE KNOWS HIS NAME AND . WILL CONTINUE TO MONITOR
[2022-05-14 21:17] LABS: Hematocrit 22.5 % (37.0-53.0); Hemoglobin 7.3 g/dL (13.5-17.5)
--- NOTE | 2022-05-15 01:09 | NUR ---
PT STS HAVING PAIN AND DIFFICULTY BREATHING. PT GIVEN PAIN MEDS PER EMAR AND A BREATHING TREATMENT PER RT. PT BIOX 96% ON 3L NC. RT OFFERED PT CPAP MASK, PT DECLINED.
--- NOTE | 2022-05-15 04:31 | NUR ---
SHIFT SUMMARY PT IS MILDLY CONFUSED. PT CALLED HIS DAUGHTER LAST EVENING, TELLING HER HE WAS BEING DISCHARGED AND TO COME AND PICK HIM UP. DAUGHTER CAME AND EXPLAINED THAT THIS IS SOMETIMES HOW THE PT IS AFTER DIALYSIS. PT HAD DIALYSIS YESTERDAY AND SLEPT FOR SEVERAL HOURS AFTERWARD. PT TO HAVE DIALYSIS AGAIN TODAY. PT COMPLAINS OF SOB AND PAIN. NEB AND PAIN MEDS WERE GIVEN. PT BIOX IS 96% ON 3L O2 VIA NC. PT THEN FELL ASLEEP. PT HAS NO COMPLAINTS AT THIS TIME.
[2022-05-15 06:03] LABS: Albumin, Blood 2.7 g/dL (3.4-5.0); Albumin/Globulin Ratio 0.7 (0.8-1.8); Bilirubin, Total 1.2 mg/dL (0.1-1.0); Calcium, Blood 9.3 mg/dL (8.5-10.1); Creatinine, Blood 3.86 mg/dL (0.60-1.20); Potassium, Blood 4.3 mmol/L (3.5-5.5); Total Protein, Blood 6.7 g/dL (6.4-8.2)
--- NOTE | 2022-05-15 08:00 | NUR ---
PT PLEASANT COOP A/O X3 WITH SOME OCC CONFUSION. H/R REG, NO MUKRMUR NOTED. PER TELE NSR AT 68. EDEMA GENERAL T/O BODY, +3. LUNGS DIM LOW LEFT, LIGHTLY COARSE ON FULL RIGHT. ON 3L O2. B/T X4 LAST BM NOT KNOWDN TO PT. VOIDS MINIMALLY, R/T DIALYSIS. FISTULA ON L ARM. LARGE DARK BRUISE L RIBS AND BACK. SCROTUM RED, MEPIILEX TO COCCYX, ULCER REPORTED. BED IN LOW POSITION, CALL LITE IN REACH. CALLS APPROP
[2022-05-15 09:53] LABS: Hematocrit 21.6 % (37.0-53.0); Hemoglobin 6.9 g/dL (13.5-17.5); Mean Corpuscular HGB 32.4 pg (26.0-34.0); Mean Corpuscular HGB Conc 31.9 g/dL (31.5-36.5); Mean Corpuscular Volume 101 fL (80-100); Mean Platelet Volume 9.5 fL (9.1-12.4); Platelet Count 138 K/mm3 (150-400); RDW Coefficient Variation 15.7 % (11.7-14.2); RDW Standard Deviation 58.4 fL (35.1-46.3); Red Blood Cell Count 2.13 M/mm3 (4.30-5.90); White Blood Cell Count 5.72 K/mm3 (4.00-11.30)
[2022-05-15 10:29] LABS: Albumin, Blood 2.9 g/dL (3.4-5.0); Anion Gap 4 mmol/L (6-16); Blood Urea Nitrogen 29 mg/dL (8-24); Bun/Creatinine Ratio 7.4 (12.0-20.0); CO2, Blood 34 mmol/L (21-32); Calcium, Blood 9.7 mg/dL (8.5-10.1); Chloride, Blood 95 mmol/L (98-108); Creatinine, Blood 3.92 mg/dL (0.60-1.20); Glomerular Filtration Rate 16 (60-); Glucose, Blood 182 mg/dL (70-99); Phosphorus, Blood 3.5 mg/dL (2.5-4.9); Potassium, Blood 4.3 mmol/L (3.5-5.5); Sodium, Blood 133 mmol/L (136-145)
--- NOTE | 2022-05-15 18:35 | NUR ---
PT DID RECEIVE DIALYSIS TODAY. STATES GETS QUITE TIRED AFTER WORD. PRESENTLY SLEEPING AT THIS TIME, EYES CLOSED, RESP EASY, UNLABORED. DR SHAFER DID MAKE SOME CHANGES ON MEDS TODAY. HAS 1000 FLUID RESTRICTION PLACED. NO OTHER CONCERNS NOTED. BED IN LOW POSITION, CALL LITE IN REACH, CALLS APPOP
[2022-05-16 09:44] LABS: Hematocrit 22.5 % (37.0-53.0); Hemoglobin 7.2 g/dL (13.5-17.5)
[2022-05-16 10:14] LABS: Albumin, Blood 2.9 g/dL (3.4-5.0); Anion Gap 9 mmol/L (6-16); Blood Urea Nitrogen 22 mg/dL (8-24); Bun/Creatinine Ratio 6.5 (12.0-20.0); CO2, Blood 31 mmol/L (21-32); Calcium, Blood 9.5 mg/dL (8.5-10.1); Chloride, Blood 97 mmol/L (98-108); Creatinine, Blood 3.36 mg/dL (0.60-1.20); Glomerular Filtration Rate 20 (60-); Glucose, Blood 142 mg/dL (70-99); Phosphorus, Blood 3.2 mg/dL (2.5-4.9); Potassium, Blood 3.9 mmol/L (3.5-5.5); Sodium, Blood 137 mmol/L (136-145)
--- NOTE | 2022-05-16 18:21 | NUR ---
PT PLEASANT TODAY. DID ASK FOR PAIN MEDS THIS AFTERNOON. DONE. RIB TO CHEST PAIN CONTINUES ALONG WITH BACK PAIN. STATES SOME TIMES IS SOB. CHECKED SATS . CONTINUES 97-99 % ON 2L. GOT HIM FAN, HE STATES THIS HELPS PRETTY GOOD. DID DIALYSIS AGAIN TODAY. THEY STATE WILL DO DIALYSIS TOMORROW AND PAUSE FOR THURSDAY. TURNING SIDE TO SIDE AND PROPPING ON PILLOWS HE ALLOWS. BED IN LOW POSITION, CALL LITE IN REACH, CALLS APPROP
--- NOTE | 2022-05-17 05:50 | NUR ---
ENVIRONMENTAL SERVICE AIDE SUMMARY ADMITTED FOR ESRD. PT IS FULL CODE. HE IS ALERT AND ORIENTED BUT SOMETIMES HAS CONFUSED CONVERSATIONS. HE HAS SEVERE PAIN TO THE LEFT BACK WHERE HE HAS A LARGE HEMATOMA FROM FRACTURED RIBS D/T FALL. MEDICATED X3 BUT PT REPORTS LITTLE RELIEF. ORDER OBTAINED FOR MELOTONIN IN ATTEMPTS TO HELP HIM SLEEP. HE IS RESTING ON 2L BY NC AND SOMETIMES TAKES SHALLOW BREATHS D/T PAIN. NO OPEN REPORTS OF SOB DURING THIS SHIFT. TELE HAS BEEN SINUS.
[2022-05-17 12:36] LABS: Albumin, Blood 3.2 g/dL (3.4-5.0); Anion Gap 5 mmol/L (6-16); Blood Urea Nitrogen 13 mg/dL (8-24); Bun/Creatinine Ratio 6.8 (12.0-20.0); CO2, Blood 32 mmol/L (21-32); Calcium, Blood 9.3 mg/dL (8.5-10.1); Chloride, Blood 100 mmol/L (98-108); Glomerular Filtration Rate 39 (60-); Glucose, Blood 152 mg/dL (70-99); Phosphorus, Blood 1.6 mg/dL (2.5-4.9); Potassium, Blood 3.1 mmol/L (3.5-5.5); Sodium, Blood 137 mmol/L (136-145)
--- NOTE | 2022-05-17 14:52 | NUR ---
AFTER FETANYL DOSING. PT SLEEPING, EYES CLOSED. RESP EASY, UNALBORED. DID NOT AWAKEN TO SOFT TALKING. DID AWAKEN TO LIGHT TOUCH. STATES PAIN ONLY DROPPED A BIT. BUT IS TOLERABLE. STATES NOT HARDLY HELPED. IMMEDIATELY CLOSES EYES AFTER QUITS TALKING. BED IN LOW POSITION, CALL LITE IN REACH, BED ALARM ON FOR SAFETY
--- NOTE | 2022-05-17 18:01 | NUR ---
PT HAD DIALYSIS AGAIN TODAY. 4 CONSECUTIVE DAYS, ABOUT 4 LITERS PER DAY. PT LEG SWELLING DOWN SOME, PER DR SAINI. TAKING MEDS PRESCRIBED. DID CUT BACK FENTANYL TODAY. GAVE 25 MCG OF FENTANYL THIS AFT FOR PAIN, HE SLEPT, DID NOT AWAKEN TO TALKING, DID AWAKEN TO LIGHT TOUCH. DENIED SLEEPING, & STATED PAIN BARELY IMPROVED. AFTER TALKING CLOSED EYES AND RELAXED AGAIN, RESP EASY, UNLABORED, NO OTHER CONCERNS NOTED TODAY. BED IN LOW POSITION, CALL LITE IN REACH. BED ALARM ON FOR SAFETY
[2022-05-18 06:31] LABS: Anion Gap 6 mmol/L (6-16); Blood Urea Nitrogen 22 mg/dL (8-24); Bun/Creatinine Ratio 7.5 (12.0-20.0); CO2, Blood 33 mmol/L (21-32); Calcium, Blood 9.6 mg/dL (8.5-10.1); Chloride, Blood 100 mmol/L (98-108); Creatinine, Blood 2.92 mg/dL (0.60-1.20); Glomerular Filtration Rate 23 (60-); Glucose, Blood 132 mg/dL (70-99); Phosphorus, Blood 2.3 mg/dL (2.5-4.9); Potassium, Blood 3.9 mmol/L (3.5-5.5); Sodium, Blood 139 mmol/L (136-145)
[2022-05-18 08:40] LABS: Albumin, Blood 2.9 g/dL (3.4-5.0); Albumin/Globulin Ratio 0.7 (0.8-1.8); Bilirubin, Direct 0.5 mg/dL (0.0-0.3); Bilirubin, Indirect 0.4 mg/dL (0.1-0.7); Bilirubin, Total 0.9 mg/dL (0.1-1.0); Globulin, Blood 4.1 g/dL (2.2-4.0)
--- NOTE | 2022-05-18 14:43 | NUR ---
SHIFT SUMMARY PT AWAKE DURING SHIFT REPORT, RESTING QUIETLY IN BED. PLEASANT AND CO-OP WITH CARE. VERY WEAK AND DECONDITIONED. ADMITTED FOR ESRD, NEEDING DIALYSIS. PT TO HAVE THE DAY OFF TODAY AND GO TO DIALYSIS AGAIN TOMORROW. PT IS MORBIDLY OBESE WITH FLUID OVERLOAD; FR AT 1000cc. SCATTERED BRUISING ACROSS BACK AND SIDES D/T FALLS AT HOME. LRG HEMATOMA TO L CENTER BACK. DR SAINI HERE TO SEE PT TODAY AND ASSESSED PT. SR ON TELE. BLE'S VERY TIGHT WITH DRY PEELING AND WRINKLED SKIN. PT MEDICATED FOR C/O PAIN TO RIBS AND BRUISING, MOSTLY WHEN LYING BACK DOWN IN BED. PT SITS UP TO EOB THRU OUT THE DAY TO WORK ON EXERCISES GIVEN BY THERAPY. PT RESTING QUIETLY AT THIS TIME. CALL LT IN REACH.
--- NOTE | 2022-05-19 05:51 | NUR ---
61 year old MAle with ESRD Chf on hemodialysis via LT fa AV fistula has 32 oz total fluid restriction. no dialysis yesterday. Medicated several times for rib & back fx pain with helpful effect. Kpad provided. Fall precautions up with 2 assist to bedside commode tolerated well. PT has baseline oxygen on. 2 l. Seeking longer term care due to multiple falls ESRD & inability to care for self without falls & injury at home.
[2022-05-19 05:56] LABS: Hematocrit 25.8 % (37.0-53.0); Mean Corpuscular HGB 32.5 pg (26.0-34.0); Mean Corpuscular Volume 105 fL (80-100); Mean Platelet Volume 9.6 fL (9.1-12.4); NRBC ABSOLUTE 0.02 K/mm3 (0.00-0.02); NRBC Auto 0.3 /100 WBC (0.0-0.2); Platelet Count 187 K/mm3 (150-400); RDW Coefficient Variation 17.1 % (11.7-14.2); RDW Standard Deviation 62.6 fL (35.1-46.3); Red Blood Cell Count 2.46 M/mm3 (4.30-5.90); White Blood Cell Count 6.75 K/mm3 (4.00-11.30)
[2022-05-19 06:14] LABS: Albumin, Blood 2.8 g/dL (3.4-5.0); Anion Gap 4 mmol/L (6-16); Blood Urea Nitrogen 37 mg/dL (8-24); CO2, Blood 31 mmol/L (21-32); Calcium, Blood 9.9 mg/dL (8.5-10.1); Chloride, Blood 100 mmol/L (98-108); Creatinine, Blood 3.71 mg/dL (0.60-1.20); Glomerular Filtration Rate 18 (60-); Glucose, Blood 130 mg/dL (70-99); Phosphorus, Blood 1.9 mg/dL (2.5-4.9); Potassium, Blood 3.7 mmol/L (3.5-5.5); Sodium, Blood 135 mmol/L (136-145)
[2022-05-19 14:27] LABS: Influenza A, PCR NEGATIVE (NEGATIVE); Influenza B, PCR NEGATIVE (NEGATIVE); Resp Syncytial Virus, PCR NEGATIVE (NEGATIVE); SARS-Cov-2 (COVID-19) PCR, MMC NEGATIVE (NEGATIVE)
--- NOTE | 2022-05-19 14:56 | NUR ---
PT RESTING QUIETLY AT START OF SHIFT. WOKE BRIEFLY FOR SHIFT REPORT. PT UP TO EOB FOR BREAKFAST AND THEN WENT DOWN FOR DIALYSIS. PT RETURNED TO FOR LUNCH. CUSTOMER LOGISTICS MANAGER IN TO SEE PT AND DISCUSS D/C TO SNF. STAT COVID TEST OBTAINED PER PROTOCOL. PT TO BE TX TO [facility]. PT/OT IN TO WORK WITH PT. PT STATES FEAR OF FALLING WHENEVER GETTING UP D/T FALLS AT HOME THAT BROUGHT HIM IN. PT TO GO TO REHAB WHILE WAITING FOR SAFE PLACE TO RETURN TO. PT MEDICATED PER EMAR FOR C/O PAIN TO RIBS AFTER LUNCH. BRUISING TO BACK AND SIDES HEALING SLOWLY FROM FALLS AT HOME. PT SITTING UP TO CHAIR AT THIS TIME. CHAIR ALARM ON FOR SAFETY. CALL LT IN REACH.
[2022-05-19] MEDS ORDERED: LIQUACEL PO (15:23)
--- NOTE | 2022-05-19 17:53 | NUR ---
1750 REPORT CALLED TO JUANITO HARDEN AT [facility]. JUANITO FAMILIAR WITH PT FROM PREVIOUS STAY.
== END 2022-05-19 17:07 | DRG 551 ==
LOC: ER 10:11 → MEDS 10:12
PROVIDERS: Emergency Medicine; Internal Medicine; Internal Medicine Nephrology; Nurse Practitioner Acute Care; ADMIT Internal Medicine
PROC: 5A1D70Z Performance of Urinary Filtration, Intermittent, Less than 6 Hours Per Day (ICD-10-PCS; principal; 2022-05-15)
DX: S32.018A Other fracture of first lumbar vertebra, initial encounter for closed fracture (principal); N18.6 End stage renal disease; I31.3 Pericardial effusion (noninflammatory); I50.22 Chronic systolic (congestive) heart failure; I13.2 Hypertensive heart and chronic kidney disease with heart failure and with stage 5 chronic kidney disease, or end stage renal disease; J96.11 Chronic respiratory failure with hypoxia; R18.8 Other ascites; E87.0 Hyperosmolality and hypernatremia; K76.6 Portal hypertension; S32.028A Other fracture of second lumbar vertebra, initial encounter for closed fracture; S32.038A Other fracture of third lumbar vertebra, initial encounter for closed fracture; Z20.822 Contact with and (suspected) exposure to COVID-19; E87.70 Fluid overload, unspecified; E87.5 Hyperkalemia; E11.22 Type 2 diabetes mellitus with diabetic chronic kidney disease; E11.51 Type 2 diabetes mellitus with diabetic peripheral angiopathy without gangrene; I27.20 Pulmonary hypertension, unspecified; E78.5 Hyperlipidemia, unspecified; K22.70 Barrett's esophagus without dysplasia; I25.10 Atherosclerotic heart disease of native coronary artery without angina pectoris; E55.9 Vitamin D deficiency, unspecified; S30.1XXA Contusion of abdominal wall, initial encounter; E66.01 Morbid (severe) obesity due to excess calories; I37.1 Nonrheumatic pulmonary valve insufficiency; K74.60 Unspecified cirrhosis of liver; D63.1 Anemia in chronic kidney disease; E11.43 Type 2 diabetes mellitus with diabetic autonomic (poly)neuropathy; Z91.15 Patient's noncompliance with renal dialysis; K31.84 Gastroparesis; Z99.81 Dependence on supplemental oxygen; Z90.49 Acquired absence of other specified parts of digestive tract; Z95.1 Presence of aortocoronary bypass graft; Z98.890 Other specified postprocedural states; Z88.8 Allergy status to other drugs, medicaments and biological substances; Z79.899 Other long term (current) drug therapy; W18.39XA Other fall on same level, initial encounter; Y92.009 Unspecified place in unspecified non-institutional (private) residence as the place of occurrence of the external cause
CPT/HCPCS: 0241U; 36415; 71260; 74177; 80053; 80069; 80076; 82550; 82947; 83880; 84484; 85014; 85018; 85025; 85027; 93005; 93010; 93308; 93321; 94640; 94664; 94760; 96374-59; 97110; 97110-CQ; 97162; 97166; 97530; 97530-CQ; 99285-25; A9270; G0257; G0378; J1170; J2405; J3010; Q5106; Q9967